=== PATIENT | female | born 1955 ===

== ENCOUNTER 2020-06-01 12:39 | Outpatient (REF) | payer MEDICARE, MEDICAID, SELFPAY ==
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
== END 2020-06-01 12:40 | disposition home or self-care (01) ==
LOC: HO.SH 12:39
PROVIDERS: PCP Family Medicine; Referring Provider Family Medicine; Visit Provider Family Medicine
DX: H90.3 Sensorineural hearing loss, bilateral (principal); H93.12 Tinnitus, left ear
CPT/HCPCS: 92557; 92567

== ENCOUNTER 2020-06-14 16:34 | Outpatient (REF) | payer MEDICARE, MEDICAID, SELFPAY ==
--- NOTE | 2020-06-14 | MM_ITS ---
EXAMINATION: MM SCREENING DIGITAL BREAST TOMOSYNTHESIS, BILATERAL CLINICAL INFORMATION: Screening. Asymptomatic. The lifetime risk of breast cancer based on the Tyrer-Cuzick Model is 6%. COMPARISON: Mammography: 02/14/2019, 09/05/2018, 02/20/2018, 02/05/2018 (baseline) TECHNIQUE: Digital breast tomosynthesis is performed in both the craniocaudal and mediolateral oblique views along with computer-aided detection (CAD). Synthesized 2D images are generated from the tomosynthesis. FINDINGS: There are scattered areas of fibroglandular density (ACR BI-RADS breast composition Category b). Parenchymal pattern is similar to prior studies. There is no developing density or interval mass or architectural abnormality. Small triangular parenchymal asymmetry posterior central 3:00 left breast is stable. Again, there are bilateral vascular calcifications. The axilla and skin contours are unremarkable. MM/MM tomosynthesis screening BI IMPRESSION: No mammographic evidence of malignancy. ASSESSMENT: BI-RADS 2: Benign RECOMMENDATION: Routine annual mammography screening. This patient's information was entered into a reminder system with a target due date for their next mammogram.
== END 2020-06-14 16:35 | disposition home or self-care (01) ==
LOC: HO.MAMMO 16:34
PROVIDERS: Visit Provider Family Medicine
DX: Z12.31 Encounter for screening mammogram for malignant neoplasm of breast (principal)
CPT/HCPCS: 77063; 77067

== ENCOUNTER 2020-09-07 08:51 | Outpatient (REF) | payer MEDICARE, MEDICAID, SELFPAY ==
--- NOTE | ~2020-09-07 | US_ITS ---
EXAMINATION: US ABDOMEN COMPLETE CLINICAL INFORMATION: Chronic viral hepatitis C. COMPARISON: Ultrasound abdomen complete dated 02/12/2020 and 06/03/2019. TECHNIQUE: Real-time imaging of the abdominal viscera. FINDINGS: PANCREAS: Visualized portions unremarkable. The tail is obscured by bowel gas shadowing. ABDOMINAL AORTA: The proximal, mid, and distal segments are normal in caliber. INFERIOR VENA CAVA: Visualized portions are normal. LIVER: Mildly diffuse increased echotexture without focal abnormality. GALLBLADDER: A dependent echogenic focus is again seen along the posterior wall measuring 0.2 cm. No mural thickening or pericholecystic fluid. COMMON BILE DUCT: Normal in caliber measuring 0.4 cm in diameter. RIGHT KIDNEY: 9.8 cm. Interpolar echogenic focus measuring 0.2 cm. LEFT KIDNEY: 11.3 cm. An upper pole anechoic cyst measures 1.9 cm. SPLEEN: Normal. The spleen measures 10.2 cm in maximum dimension. FREE FLUID: None. US/US abdomen complete IMPRESSION: 1. Mild increased hepatic echotexture, similar to the previous study without significant change. No focal abnormality. 2. Small gallstone versus polyp without significant change. No acute cholecystitis. 3. Nonobstructing right intrarenal calculus. 4. Small left renal cyst demonstrates benign features.
== END 2020-09-07 08:52 | disposition home or self-care (01) ==
LOC: HO.US 08:51
PROVIDERS: PCP Internal Medicine; Visit Provider Internal Medicine
DX: B18.2 Chronic viral hepatitis C (principal)
CPT/HCPCS: 76700

== ENCOUNTER 2021-08-16 11:56 | Outpatient (REF) | payer MEDICARE, MEDICAID, SELFPAY ==
--- NOTE | ~2021-08-16 | XR_ITS ---
EXAMINATION: XR KNEE, LEFT CLINICAL INFORMATION: Pain in left knee. Fall one month ago. COMPARISON: None TECHNIQUE: Four views of the left knee. FINDINGS: There is a chronic healing fracture involving the proximal fibular diaphysis with periosteal reaction. This is probably the injury that occurred one month ago. No other fractures are seen. There is some minimal narrowing of the medial compartment indicative of some degenerative change. No joint effusion is present. XR/XR knee LT 4V IMPRESSION: Subacute fracture proximal fibula.
== END 2021-08-16 11:57 | disposition home or self-care (01) ==
LOC: HO.XRAY 11:56
PROVIDERS: PCP Internal Medicine; Visit Provider Internal Medicine
DX: M25.562 Pain in left knee (principal); M25.561 Pain in right knee
CPT/HCPCS: 73564

== ENCOUNTER 2021-09-13 10:35 | Outpatient (REF) | payer MEDICARE, MEDICAID, SELFPAY ==
--- NOTE | ~2021-09-13 | MM_ITS ---
EXAMINATION: BONE DENSITOMETRY CLINICAL INDICATION: Osteoporosis. COMPARISON: None (current study represents initial baseline exam). TECHNIQUE: Using a [employer] DXA System (software version: 13.1) manufactured by [employer], dual-energy x-ray absorptiometry was performed of the lumbar spine and left hip. The images are of good technical quality. Summary results are attached. FINDINGS: AP SPINE L2-L4 (excluding L1): The data of L1-L4 has been changed to exclude the L1 vertebral body, because degenerative changes at this level may cause overestimation of lumbar spine density. BMD 0.735 g/cm2, Z-score -2.2, T-score -3.9, osteoporosis. LEFT FEMUR, NECK: BMD 0.727 g/cm2, Z-score -0.6, T-score -2.2, osteopenia. LEFT FEMUR, TOTAL: BMD 0.745 g/cm2, Z-score -0.7, T-score -2.1, osteopenia. IDENTIFIED RISK FACTORS: Osteoporosis, tobacco use (current smoker), menopause. HISTORY OF FRACTURE: None listed. MEDICATIONS: Calcium supplements or multivitamin, vitamin D. MM/XR DEXA axial skeleton IMPRESSION: 1. DIAGNOSIS: Osteoporosis based on the lowest T-score value of -3.9 in the lumbar spine applying World Health Organization criteria. 2. 10-YEAR FRACTURE RISK PREDICTION, FRAX: According to the guidelines, FRAX calculation should only be performed on patients in the osteopenia bone density category. Therefore, FRAX was not performed on this patient. 3. Treatment Recommendations: NOF guidelines recommend consideration for treatment in postmenopausal women and men age 50 and older presenting with the following: -A hip or vertebral (clinical or morphometric) fracture. -T-score less than or equal to -2.5 at the femoral neck or spine after appropriate evaluation to exclude secondary causes. -Low bone mass at the hip or spine and a 10-year fracture probability by FRAX of greater than or equal to 3% for hip fracture or greater than or equal to 20% for major osteoporotic fracture based on the [place] adapted WHO algorithm. 4. Other Recommendations: All treatment decisions require clinical judgment and consideration of individual patient factors, including patient preferences, comorbidities, previous drug use, risk factors not captured in the FRAX model (e.g. frailty, falls, vitamin D deficiency, increased bone turnover, interval significant decline in bone density) and possible under or overestimation of fracture risk by FRAX. Additional medical evaluation for secondary cause of low bone mineral density may be appropriate. FUTURE SCAN RECOMMENDATION: People with diagnosed cases of osteoporosis or at high risk for fracture should have regular bone mineral density tests. For patients eligible for Medicare, routine testing is allowed once every 2 years. The testing frequency can be increased to one year for patients who have rapidly progressing disease, those who are receiving or discontinuing medical therapy to restore bone mass, or have additional risk factors.
--- NOTE | ~2021-09-13 | MM_ITS ---
EXAMINATION: MM SCREENING DIGITAL BREAST TOMOSYNTHESIS, BILATERAL CLINICAL INFORMATION: Screening. Asymptomatic. The lifetime risk of breast cancer based on the Tyrer-Cuzick Model is 4%. COMPARISON: Mammography: 06/14/2020, 02/14/2019, 09/05/2018 TECHNIQUE: Digital breast tomosynthesis is performed in both the craniocaudal and mediolateral oblique views along with computer-aided detection (CAD). Synthesized 2D images are generated from the tomosynthesis. FINDINGS: There are scattered areas of fibroglandular density (ACR BI-RADS breast composition Category b). There are no significant masses, abnormal calcifications, or other abnormalities. There is no developing density. Parenchymal pattern is similar to prior studies. The axilla and skin contours are unremarkable. MM/MM tomosynthesis screening BI IMPRESSION: No mammographic evidence of malignancy. ASSESSMENT: BI-RADS 1: Negative RECOMMENDATION: Routine annual mammography screening. This patient's information was entered into a reminder system with a target due date for their next mammogram.
== END 2021-09-13 10:36 | disposition home or self-care (01) ==
LOC: HO.MAMMO 10:35
PROVIDERS: PCP Internal Medicine; Visit Provider Advanced Practice Midwife
DX: Z12.31 Encounter for screening mammogram for malignant neoplasm of breast (principal); Z13.820 Encounter for screening for osteoporosis; M81.0 Age-related osteoporosis without current pathological fracture; Z78.0 Asymptomatic menopausal state; F17.200 Nicotine dependence, unspecified, uncomplicated; Z79.899 Other long term (current) drug therapy
CPT/HCPCS: 77063; 77067; 77080

== ENCOUNTER → 2021-11-03 13:57 | Outpatient (BNVA) | payer MEDICARE, MEDICAID, SELFPAY | PROVIDERS: PCP Internal Medicine; Visit Provider Orthopaedic Surgery | DX: M17.12 Unilateral primary osteoarthritis, left knee (principal) | CPT/HCPCS: 20610; 99202; J1100 ==

== ENCOUNTER 2022-03-29 07:24 | Outpatient (REF) | payer MEDICARE, MEDICAID, SELFPAY ==
--- NOTE | ~2022-03-29 | US_ITS ---
EXAMINATION: US ABDOMEN LIMITED CLINICAL INFORMATION: Cirrhosis. Screening for HCC. COMPARISON: None TECHNIQUE: Real-time imaging of the right upper quadrant abdominal viscera. FINDINGS: PANCREAS: Normal LIVER: Liver echotexture is slightly increased and heterogeneous suggestive of hepatocellular disease. The contour of the liver is irregular suggestive of mild cirrhotic change. There is no intrahepatic biliary duct dilatation seen. GALLBLADDER: The gallbladder is physiologically distended. Several small gallstones are present. No evidence of gallbladder wall thickening or pericholecystic fluid. COMMON BILE DUCT: Normal in caliber measuring 0.3 cm in diameter. RIGHT KIDNEY: There is question of 2 small stones in the upper and midpole measuring 2 to 3 mm. There is a small 4 mm cyst in the midpole. No hydronephrosis The kidney measures 10.0 cm in maximum dimension. FREE FLUID: None. US/US abdomen limited IMPRESSION: Cirrhotic-appearing liver. No focal liver lesion seen. No ascites. Gallstones. Question small right renal stones.
== END 2022-03-29 07:25 | disposition home or self-care (01) ==
LOC: HO.US 07:24
PROVIDERS: Visit Provider Internal Medicine
DX: K74.60 Unspecified cirrhosis of liver (principal)
CPT/HCPCS: 76705

== ENCOUNTER 2022-10-17 10:08 | Outpatient (REF) | payer MEDICARE, MEDICAID, SELFPAY ==
--- NOTE | ~2022-10-17 | MM_ITS ---
EXAMINATION: MM SCREENING DIGITAL BREAST TOMOSYNTHESIS, BILATERAL CLINICAL INFORMATION: Screening. Asymptomatic. The lifetime risk of breast cancer based on the Tyrer-Cuzick Model is 3%. COMPARISON: Mammography: September 13, 2021 and studies dating back to February 05, 2018 TECHNIQUE: Digital breast tomosynthesis is performed in both the craniocaudal and mediolateral oblique views along with computer-aided detection (CAD). Synthesized 2D images are generated from the tomosynthesis. FINDINGS: The breasts are heterogeneously dense, which may obscure small masses (ACR BI-RADS breast composition Category c). There are no significant masses, abnormal calcifications, or other abnormalities. MM/MM tomosynthesis screening BI IMPRESSION: No significant changes from prior exam. ASSESSMENT: BI-RADS 1: Negative RECOMMENDATION: Routine annual mammography screening. This patient's information was entered into a reminder system with a target due date for their next mammogram.
== END 2022-10-17 10:09 | disposition home or self-care (01) ==
LOC: HO.MAMMO 10:08
PROVIDERS: Visit Provider Internal Medicine
DX: Z12.31 Encounter for screening mammogram for malignant neoplasm of breast (principal)
CPT/HCPCS: 77063; 77067

== ENCOUNTER 2023-02-13 08:23 | Outpatient (REF) | payer MEDICARE, MEDICAID, SELFPAY ==
--- NOTE | ~2023-02-13 | US_ITS ---
EXAMINATION: US ABDOMEN COMPLETE CLINICAL INFORMATION: Cirrhosis of liver without ascites. COMPARISON: Ultrasound abdomen limited 03/29/2022. Ultrasound abdomen complete 09/07/2020. TECHNIQUE: Real-time imaging of the abdominal viscera. Limited visualization due to bowel gas. FINDINGS: PANCREAS: Limited visualization of pancreatic tail and head. Imaged portion of pancreatic body is unremarkable. ABDOMINAL AORTA: Limited visualization of the [id number] abdominal aorta. Imaged portion of the proximal abdominal aorta is nonaneurysmal and atherosclerotic. INFERIOR VENA CAVA: Visualized portions are normal. LIVER: Nodular hepatic contour, possibly related to cirrhosis. Increased and heterogeneous hepatic echotexture is suggestive of hepatocellular disease. Limited visualization. GALLBLADDER: No gallbladder wall thickening. Multiple small gallstones. COMMON BILE DUCT: Normal in caliber measuring 0.4 cm in diameter. RIGHT KIDNEY: Right renal midpole 0.6 x 0.4 x 0.3 cm cyst, stable. Right renal upper pole 0.3 cm calculus. No hydronephrosis. Limited visualization. The kidney measures 9.8 cm in maximum dimension. LEFT KIDNEY: Left renal upper pole 2.1 x 2.2 x 2.3 cm simple cyst. There is no indication for follow up imaging. No hydronephrosis or renal calculi. Limited visualization. The kidney measures 12.2 cm in maximum dimension. SPLEEN: Normal. The spleen measures 9.2 cm in maximum dimension. FREE FLUID: None. US/US abdomen complete IMPRESSION: 1. Hepatic appearance compatible with given history of cirrhosis. 2. Cholelithiasis. 3. Possible 0.3 cm right renal upper pole calculus. No hydronephrosis.
== END 2023-02-13 08:24 | disposition home or self-care (01) ==
LOC: HO.US 08:23
PROVIDERS: PCP Internal Medicine; Visit Provider Family Medicine
DX: K74.60 Unspecified cirrhosis of liver (principal)
CPT/HCPCS: 76700

== ENCOUNTER 2023-03-28 09:32 | Outpatient (REF) | payer MEDICARE, MEDICAID, SELFPAY ==
[2023-03-28 11:23] LABS: MANUAL DIFF FLAG NO
[2023-03-28 11:40] LABS: Basophils Percent Auto 0.5 % (0-2); Eosinophils Absolute Auto 0.2 X10*3/uL (0.0-0.4); Eosinophils Percent Auto 2.5 % (0-4); Hematocrit 38.9 % (37.0-47.0); Hemoglobin 13.2 g/dl (12.0-16.0); Imm Gran Abs Auto 0.03 X10*3/uL (0.00-0.03); Imm Gran Pct Auto 0.4 % (0.0-0.4); Lymphocytes Absolute Auto 2.4 X10*3/uL (1.2-4.9); Lymphocytes Percent Auto 32.4 % (20-40); Mean Corpuscular HGB Conc 33.9 g/dl (31.0-35.0); Mean Corpuscular Hemoglobin 30.7 pg (27.0-33.0); Mean Corpuscular Volume 90.5 fL (80.0-98.0); Mean Platelet Volume 12.6 fL (9.4-12.3); Monocytes Absolute Auto 0.5 X10*3/uL (0.1-1.2); Neutrophils Absolute Auto 4.3 x10*3/uL (2.0-8.3); Neutrophils Percent Auto 57.2 % (45-73); Platelet Count 130 X10*3/uL (160-400); Red Cell Distribution Width 13.1 % (11.0-16.0); White Blood Count 7.5 X10*3/uL (4.8-10.8)
[2023-03-28 11:52] LABS: Appearance Urine Clear; Color Urine Yellow; Glucose Urine UA Negative (Negative); Leukocyte Esterase Urine Trace (Negative); Nitrite Urine Negative (Negative); Specific Gravity - Urine 1.015 (1.005-1.025); UMIC TRIGGER UA YES; Urine Blood Moderate (2+) (Negative); Urine Ketones Negative (Negative); Urine Protein Negative (Neg-Trace)
[2023-03-28 11:55] LABS: Bacteria Urine None Seen (None Seen); Hyaline Casts Urine 0-2 /LPF (0-2); Squamous Epithelial Cell Urine 0-2 /HPF (0-2); WBC Urine 0-5 /HPF (0-5)
[2023-03-28 12:19] LABS: Alanine Aminotransferase 10 U/L (0-31); Albumin Level 4.2 g/dL (3.5-5.0); Alkaline Phosphatase 84 U/L (39-117); Anion Gap 10 (12-20); Aspartate Amino Transferase 14 U/L (5-31); Bilirubin Total 0.4 mg/dL (0.0-1.0); Blood Urea Nitrogen 14 mg/dL (9-16); Calcium 9.1 mg/dL (8.4-10.2); Carbon Dioxide 29 mmol/L (22-29); Chloride 107 mmol/L (96-108); Estimated Glomerular Filt Rate > 60; Glucose Random 95 mg/dL (60-115); Potassium 4.3 mmol/L (3.3-5.1); Sodium 142 mmol/L (135-145); Total Protein 7.7 g/dL (6.5-8.0)
[2023-03-29 11:48] LABS: Absolute CD3 Count 2058 cells/uL (840-3060); Absolute CD4 Count 857 cells/uL (490-1740); Absolute CD8 Count 1222 cells/uL (180-1170); Absolute Lymphocytes 2490 cells/uL (850-3900); Percent CD3 Cells 83 % (57-85); Percent CD4 Cells 34 % (30-61); Percent CD8 Cells 49 % (12-42)
[2023-03-29 15:43] LABS: HIV RNA PCR Qn Copies 60 copies/mL (NOT DETECTED); HIV RNA PCR Qn Log Copies 1.78 (NOT DETECTED)
[2023-03-30 11:33] LABS: TS Negative Control Passed; TS Panel A 1; TS Panel B 0; TS Positive Control Passed; TSpotTB Negative (Negative)
== END 2023-03-28 09:33 | disposition home or self-care (01) ==
LOC: HO.HHCL 09:32
PROVIDERS: Visit Provider Student in an Organized Health Care Education/Training Program
DX: B20 Human immunodeficiency virus [HIV] disease (principal)
CPT/HCPCS: 36415; 80053; 81001; 85025; 86359; 86360; 86481; 87536

== ENCOUNTER 2023-06-18 11:27 | Outpatient (REF) | payer MEDICARE, MEDICAID, SELFPAY ==
[2023-06-18 13:28] LABS: INTERNATIONAL NORM RATIO 0.9 (0.9-1.1); Prothrombin Time 11.5 SEC (11.1-13.3)
[2023-06-18 13:49] LABS: Appearance Urine Clear; Color Urine Yellow; Glucose Urine UA Negative (Negative); Leukocyte Esterase Urine Trace (Negative); Nitrite Urine Negative (Negative); PH 6.5 (5.0-9.0); UMIC TRIGGER UA YES; Urine Blood Small (1+) (Negative); Urine Ketones Negative (Negative); Urine Protein Negative (Neg-Trace)
[2023-06-18 14:06] LABS: Bacteria Urine None Seen (None Seen); Hyaline Casts Urine 0-2 /LPF (0-2); Squamous Epithelial Cell Urine 0-2 /HPF (0-2); WBC Urine 0-5 /HPF (0-5)
[2023-06-19 04:35] LABS: HBc Num1 2.41 S/CO (0.00-0.79); HBsAGNum1 0.24 S/CO (0.00-0.99); Hepatitis B Surface Antigen Negative (Negative)
[2023-06-19 04:41] LABS: Hepatitis A Antibody IgG REACTIVE (Nonreactive)
[2023-06-19 06:01] LABS: HBS Num2 9.68 mIU/mL (0-7.99); HBc Num3 2.41 S/CO; Hepatitis B Core Antibody Reactive (Nonreactive); ~Hepatitis B Surface Antibody GRAYZONE (Nonreactive)
[2023-06-19 13:09] LABS: Alpha Fetoprotein 3.6 ng/mL
[2023-06-21 18:35] LABS: HIV RNA PCR Qn Copies <20 DETECTED copies/mL (NOT DETECTED); HIV RNA PCR Qn Log Copies <1.30 DETECTED (NOT DETECTED)
== END 2023-06-18 11:28 | disposition home or self-care (01) ==
LOC: HO.HHCL 11:27
PROVIDERS: Visit Provider Student in an Organized Health Care Education/Training Program
DX: B20 Human immunodeficiency virus [HIV] disease (principal); K74.60 Unspecified cirrhosis of liver; Z11.59 Encounter for screening for other viral diseases; Z72.89 Other problems related to lifestyle
CPT/HCPCS: 36415; 81001; 82105; 85610; 86704; 86705; 86706; 86708; 87340; 87536

== ENCOUNTER 2023-08-07 14:47 | Outpatient (AMB) | payer MEDICARE, MEDICAID, SELFPAY ==
--- NOTE | 2023-08-07 14:56 | MHC.OFFVIS ---
Intake Vital Signs 08/07/23 14:58 Height 5 ft 2 in Weight 140 lb BMI 25.6 BP 137/60 Blood Pressure Location Lt brachial Position Sitting Pulse 90 Intake Visit Reasons: Cirrhosis of Liver w/o ascites Intake Note: New consult for Cirrhosis of liver. Patient denies any GI issues. Architectural Coating Finisher Required: Yes Architectural Coating Finisher Name: [facility] [place], [place] Interpeter Accompanied by: Daughter Allergies Penicillins Allergy (Verified 08/07/23 14:56) Hives HPI Cirrhosis of Liver w/o ascites HPI Details 67-year-old female with past medical history of osteoporosis, hep C, hypo thyroidism, HIV cholelithiasis, history of syphilis, cirrhosis of the liver, dyslipidemia, cervical disc disease, is here today for initial consultation. Patient was sent to us by her PCP for evaluation of her liver. Patient was diagnosed with hep C and treated with Epclusa saw for 12 weeks in December of 2017. Patient had colonoscopy and upper endoscopy in July of 2018, 1 tubular adenoma found and recommendation made to repeat colonoscopy in July of 2023. Patient is refusing to go for colonoscopy. Patient denies any GI concerning symptoms. Occasional abdominal bloating. Patient denies any abdominal pain or discomfort. Denies any melena, hematochezia, unintentional weight loss or ribbon like stools. 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 Review of Systems Const Denies weight gain and Denies weight loss ENT Reports no additional complaints, Denies dysphagia and Denies odynophagia Card Reports no additional complaints Resp Reports no additional complaints GI Denies abdominal pain, Denies belching, Denies melena, Denies bloating, Denies change in bowel habits, Denies dysphagia, Denies excessive flatus, Denies dyspepsia, Denies heartburn, Denies diarrhea, Denies loose stools, Denies nausea, Denies odynophagia and Denies vomiting Musc Reports no additional complaints Neuro Reports no additional complaints Psych Reports no additional complaints Endo Reports no additional complaints Physical Exam Vital Signs: Last Vital Signs Pulse 90 08/07/23 14:58 BP 137/60 08/07/23 14:58 BMI result Body Mass Index 25.6 Const General: healthy appearing, no acute distress and well developed Nutritional Appearance: well nourished Orientation/consciousness: patient oriented x3 Resp Effort & Inspection: normal respiratory effort, able to speak in complete sentences, no tracheal deviation and symmetric chest movement Auscultation: clear to auscultation bilaterally Cardio Rate: regular rate GI Inspection: Yes normal to inspection and No distended Palpation (GI): Soft to palpation, not firm, nontender and No hepatosplenomegaly present Auscultation: normal bowel sounds General: Yes no CVA tenderness Back/Spine/Pelvis Back: no CVA tenderness Skin General skin exam: elasticity normal, turgor normal and dry skin Neuro General: patient oriented x3 Psych Appearance: grossly normal Mental Status: mental status grossly normal Assessment & Plan Assessment & Plan (1) History of hepatitis C: Code(s): Z86.19 - Personal history of other infectious and parasitic diseases (2) HIV (human immunodeficiency virus infection): Code(s): B20 - Human immunodeficiency virus [HIV] disease Qualifiers: HIV symptom status: unspecified Qualified Code(s): B20 - Human immunodeficiency virus [HIV] disease (3) Liver cirrhosis: Code(s): K74.60 - Unspecified cirrhosis of liver (4) Colonoscopy refused: Code(s): Z53.20 - Procedure and treatment not carried out because of patient's decision for unspecified reasons Plan History of HIV and hep C. Patient has been treated by her PCP. Treatment for hep C back in 2018. Will do viral load. Patient denies any abdominal pain or discomfort. Denies any abdominal distension, jaundice. Will check for autoimmune disorders, alpha-fetoprotein was negative. Will check liver with elastography end-stage. Patient will return to the office in 3 months, sooner on as needed basis. Patient is agreeable to this plan and verbalizes understanding of instructions. She was given the opportunity to ask questions and all questions answered. Thank you for allowing me to participate in her care Orders: Orders Hepatitis C Viral Load 08/07/23 Z86.19 - Personal history of other infectious and parasitic diseases US abdomen comp w elastography 08/07/23 R79.89 - Other specified abnormal findings of blood chemistry C Reactive Protein 08/07/23 K58.9 - Irritable bowel syndrome without diarrhea Smooth Muscle Antibody 08/07/23 R79.89 - Other specified abnormal findings of blood chemistry Mitochondrial Antibody 08/07/23 R79.89 - Other specified abnormal findings of blood chemistry Ferritin 08/07/23 R74.8 - Abnormal levels of other serum enzymes Liver Fibrosis Pnl 08/07/23 R74.8 - Abnormal levels of other serum enzymes Prothrombin Time INR 08/07/23 R74.8 - Abnormal levels of other serum enzymes Coding Level of Care Code New Pt Level 4 (03888) Diagnoses History of hepatitis C Z86.19 HIV infection, unspecified symptom status B20 HIV symptom status: unspecified Liver cirrhosis K74.60 Colonoscopy refused Z53.20 Time Spent (min) 45 Comment 30 minutes spent with patient and additional 15 minutes spent reviewing her records
[2023-08-07 14:58] VITALS: BP 137/60; PULSE 90; BMI 25.6
== END 2023-08-07 15:32 | disposition home or self-care (01) ==
PROVIDERS: PCP Internal Medicine; Visit Provider Nurse Practitioner Family
DX: Z86.19 Personal history of other infectious and parasitic diseases (principal); B20 Human immunodeficiency virus [HIV] disease; K74.60 Unspecified cirrhosis of liver; Z53.20 Procedure and treatment not carried out because of patient's decision for unspecified reasons
CPT/HCPCS: 99204

== ENCOUNTER → 2023-08-07 14:47 | Outpatient (BNVA) | payer MEDICARE, MEDICAID, SELFPAY | PROVIDERS: PCP Internal Medicine; Visit Provider Nurse Practitioner Family | DX: K74.60 Unspecified cirrhosis of liver (principal); B20 Human immunodeficiency virus [HIV] disease; Z86.19 Personal history of other infectious and parasitic diseases; Z53.20 Procedure and treatment not carried out because of patient's decision for unspecified reasons | CPT/HCPCS: 99202 ==

== ENCOUNTER 2023-08-13 10:43 | Outpatient (REF) | payer MEDICARE, MEDICAID, SELFPAY ==
[2023-08-13 11:15] LABS: Prothrombin Time 12.6 SEC (11.1-13.3)
[2023-08-13 12:58] LABS: C Reactive Protein < 0.10 mg/dL (< or = 0.50)
[2023-08-13 13:07] LABS: Ferritin 34 ng/mL (10-250)
[2023-08-15 19:29] LABS: HCV Log PCR <1.18 NOT DETECTED Log IU/mL (NOT DETECTED); HepC Viral Load <15 NOT DETECTED IU/mL (NOT DETECTED)
[2023-08-17 12:34] LABS: Smooth Muscle Antibody <20 U (<20)
[2023-08-17 15:49] LABS: Mitochondrial Antibodies NEGATIVE (NEGATIVE)
[2023-08-18 16:58] LABS: FIB-ALT 16 U/L (6-29); FIB-Alpha-2-Macroglobulin 339 mg/dL (106-279); FIB-Apolipoprotein A1 144 mg/dL (101-198); FIB-GGT 25 U/L (3-65); FIB-Haptoglobin 165 mg/dL (43-212); FIB-Total Bilirubin 0.3 mg/dL (0.2-1.2); Liver Fibrosis Score 0.37; Liver Fibrosis Stage F1-F2; Nec Inflam Act Grade A0; Nec Inflam Act Score 0.06
== END 2023-08-13 10:44 | disposition home or self-care (01) ==
LOC: HO.LAB 10:43
PROVIDERS: PCP Internal Medicine; Visit Provider Nurse Practitioner Family
DX: K58.9 Irritable bowel syndrome, unspecified (principal); R79.89 Other specified abnormal findings of blood chemistry; R74.8 Abnormal levels of other serum enzymes; Z86.19 Personal history of other infectious and parasitic diseases
CPT/HCPCS: 36415; 81596; 82728; 85610; 86015; 86140; 86381; 87522

== ENCOUNTER 2023-08-31 07:57 | Outpatient (REF) | payer MEDICARE, MEDICAID, SELFPAY ==
[2023-08-31 11:44] LABS: Appearance Urine Clear; Color Urine Yellow; Estimated Average Glucose 105 mg/dL; Glucose Urine UA Negative (Negative); Hemoglobin A1c % 5.3 % (<6.0); Leukocyte Esterase Urine Moderate (2+) (Negative); Nitrite Urine Negative (Negative); PH 5.5 (5.0-9.0); UMIC TRIGGER UACC YES; Urine Blood Moderate (2+) (Negative); Urine Ketones Negative (Negative); Urine Protein Negative (Neg-Trace)
[2023-08-31 11:47] LABS: Bacteria Urine 1+ (None Seen); Hyaline Casts Urine 0-2 /LPF (0-2); UACC Culture Trigger YES; WBC Urine 21-50 /HPF (0-5)
[2023-08-31 11:54] LABS: Cholesterol 160 mg/dL (<200); HDL Cholesterol 42 mg/dL (>40); LDL Cholesterol Calculated 80 mg/dL (<100); Triglycerides 193 mg/dL (<150)
== END 2023-08-31 07:58 | disposition home or self-care (01) ==
LOC: HO.HHCL 07:57
PROVIDERS: Visit Provider Internal Medicine
DX: R31.21 Asymptomatic microscopic hematuria (principal); I10 Essential (primary) hypertension; Z79.899 Other long term (current) drug therapy
CPT/HCPCS: 36415; 80061; 81001; 83036; 87086

== ENCOUNTER 2023-09-11 08:44 | Outpatient (REF) | payer MEDICARE, MEDICAID, SELFPAY ==
--- NOTE | ~2023-09-11 | US_ITS ---
EXAMINATION: US COMPLETE ABDOMEN WITH LIVER ELASTOGRAPHY CLINICAL INFORMATION: Abnormal findings of blood chemistry COMPARISON: None available. TECHNIQUE: Real-time imaging of the abdominal viscera. Noninvasive ultrasound liver fibrosis assessment is performed using Ananth ElastPQ point quantification shear wave elastography (2D-SWE) with a C5-2 MHz transducer. Multiple elastography samples are obtained. FINDINGS: PANCREAS: Normal. The visualized pancreatic head and body are normal in appearance. The remainder of the pancreas is obscured from visualization by the overlying bowel gas. ABDOMINAL AORTA: The proximal abdominal aorta is of normal caliber. The mid and the distal abdominal aorta is not seen. INFERIOR VENA CAVA: Visualized portions are normal. LIVER: The liver demonstrates heterogeneous echotexture, mild lobulated contour but normal size.. No focal lesion or intrahepatic biliary duct dilatation. The right lobe measures 12.7 cm in length. The left lobe measures 11.8 cm in length. Portal flow is hepatopedal Shear wave liver elastography median stiffness is 1.80 m/s (reference: normal median stiffness is 1.3 m/s or less). IQR/median stiffness to assess sampling precision is 0.18 (reference: good quality data set is IQR/median stiffness of 0.15 or less). GALLBLADDER: There are small echogenic mobile gallstones without wall thickening or pericholecystic fluid collection. COMMON BILE DUCT: Normal in caliber measuring 0.4 cm in diameter. RIGHT KIDNEY: The kidney has a lobulated contour but normal size. No hydronephrosis. No renal calculi or focal parenchymal lesions. The kidney measures 9.5 cm in maximum dimension. LEFT KIDNEY: Normal. No hydronephrosis. No renal calculi or focal parenchymal lesions. The kidney measures 11.5 cm in maximum dimension. There is anechoic cyst upper/medial pole measuring 2.5 x 2.3 x 2.3 cm. SPLEEN: Normal. The spleen measures 9.3 cm in maximum dimension. FREE FLUID: None. US/US abdomen comp w elastography IMPRESSION: 1. Mild cirrhotic appearing liver without any focal lesion. Cholelithiasis without wall thickening. 2. Liver elastography: Median liver stiffness measures 1.80 m/s corresponding to cACLD (suggestive) REFERENCE: Society of Radiologists in Ultrasound Liver Stiffness Thresholds (2019): LIVER STIFFNESS THRESHOLDS: *Liver Stiffness equal or less than 1.3 m/s: High probability of being normal. *Liver Stiffness less than 1.7 m/s: In the absence of other known clinical signs, rules out compensated advanced chronic liver disease. *Liver Stiffness 1.7-2.1 m/s: Suggestive of compensated advanced chronic liver disease but need further test for confirmation. *Liver Stiffness over 2.1 m/s: Rules in compensated advanced chronic liver disease. *Liver Stiffness over 2.4 m/s: Suggestive of clinically significant portal hypertension. QUALITY OF DATA SET: *IQR/Median value equal or less than 0.15 implies a quality data set. *IQR/Median value over 0.15 implies a poor quality data set. SIGNIFICANT CHANGE FROM PRIOR EXAM: Significant change if liver stiffness measurement is 10% or greater from prior exam. OTHER CONSIDERATIONS: The stage of liver fibrosis may be overestimated in the setting of acute hepatitis, liver inflammation, elevated liver function tests, hepatic vascular congestion, obstructive cholestasis, non-fasting state, and infiltrative diseases such as amyloidosis and lymphoma. In some patients with NAFLD, the liver stiffness thresholds for compensated advanced chronic liver disease may be lower. In causes other than viral hepatitis and NAFLD, liver stiffness thresholds are not well established.
== END 2023-09-11 08:45 | disposition home or self-care (01) ==
LOC: HO.US 08:44
PROVIDERS: PCP Internal Medicine; Visit Provider Nurse Practitioner Family
DX: R79.89 Other specified abnormal findings of blood chemistry (principal)
CPT/HCPCS: 76700; 76981

== ENCOUNTER 2023-10-23 10:07 | Outpatient (REF) | payer MEDICARE, MEDICAID, SELFPAY ==
--- NOTE | ~2023-10-23 | MM_ITS ---
EXAMINATION: MM SCREENING DIGITAL BREAST TOMOSYNTHESIS, BILATERAL CLINICAL INFORMATION: Screening. Asymptomatic. COMPARISON: Mammography: 10/17/2022, 09/13/2021, 06/14/2020, 02/14/2019, 09/05/2018 TECHNIQUE: Digital breast tomosynthesis is performed in both the craniocaudal and mediolateral oblique views along with computer-aided detection (CAD). Synthesized 2D images are generated from the tomosynthesis. FINDINGS: There are scattered areas of fibroglandular density (ACR BI-RADS breast composition Category b). There are no suspicious masses, suspicious grouped calcifications, or areas of architectural distortion in either breast. There is an unchanged focal parenchymal asymmetry in the left CC and MLO projection, posterior one third, just lateral and inferior to to the nipple line. The parenchymal pattern is stable from prior exams. MM/MM tomosynthesis screening BI IMPRESSION: No mammographic evidence of malignancy. ASSESSMENT: BI-RADS BI-RADS 2 - Benign Findings RECOMMENDATION: Routine annual mammography screening. 1 year F/U This examination should not preclude the clinical evaluation of a suspicious palpable abnormality. This patient's information was entered into a reminder system with a target due date for their next mammogram.
== END 2023-10-23 10:08 | disposition home or self-care (01) ==
LOC: HO.MAMMO 10:07
PROVIDERS: PCP Internal Medicine; Visit Provider Internal Medicine
DX: Z12.31 Encounter for screening mammogram for malignant neoplasm of breast (principal)
CPT/HCPCS: 77063; 77067

== ENCOUNTER → 2023-10-23 10:30 | Outpatient (BNV) | payer MEDICARE, MEDICAID, SELFPAY | PROVIDERS: PCP Internal Medicine; Visit Provider Radiology Diagnostic Radiology | DX: Z12.31 Encounter for screening mammogram for malignant neoplasm of breast (principal) | CPT/HCPCS: 77063; 77067 ==

== ENCOUNTER 2023-11-13 12:46 | Outpatient (AMB) | payer MEDICARE, MEDICAID, SELFPAY ==
--- NOTE | 2023-11-13 13:07 | A.OFFVIS_ITS ---
Intake Visit Reasons: microscopic hematuria Intake Note: New Patient presents for initial visit for microscopic hematuria Urology Medications: none Blood Thinner: none Apartment Maintenance Supervisor Required: Yes Apartment Maintenance Supervisor Name: CONG HEDRICK-JUANCARLOS Accompanied by: Unknown Allergies Penicillins Allergy (Verified 11/13/23 13:30) Hives Medication List - Last Reconciled 11/13/23 by Zara Murray, SHAKE LOADER- albuterol sulfate 90 mcg/actuation 0 mcg inhalation alendronate 70 mg PO QWEEK amlodipine 5 mg PO DAILY atorvastatin 20 mg PO DAILY tcziqhfnn-ujdccmll-ixajmei ala 50-200-25 mg (Biktarvy) 1 tab PO DAILY calcium carbonate-vitamin D3 500 mg-5 mcg (200 unit) (Oyster Shell Calcium- Vitamin D3) 1 tab PO DAILY cholecalciferol (vitamin D3) 50 mcg PO DAILY darunavir-cobicistat 800-150 mg-mg (Prezcobix) 1 tab PO DAILY dolutegravir (Tivicay) 50 mg PO DAILY emtricitabine-tenofovir alafen 200-25 mg (Descovy) 1 tab PO DAILY ferrous sulfate (FeroSul) 325 mg PO DAILY hydrochlorothiazide 25 mg PO DAILY hydroxyzine HCl 25 mg PO TID ivermectin 6 mg PO BID lisinopril 40 mg PO DAILY melatonin 5 mg PO BEDTIME trazodone 25 mg PO BEDTIME PRN HPI Comments Details: Ysabel is a very pleasant [place]aguayan-speaking 68-year-old female patient of Dr. Proctor who was accompanied by her granddaughter at today's office visit. She has a past medical history of liver cirrhosis, HIV, hep C, osteoporosis, hypercholesteremia, and hypertension. She presents to the office today as a new patient for microscopic hematuria in the setting of nicotine dependence. In discussion with the patient today she reports smoking approximately half a pack of cigarettes per day since the age of 9. She discusses following up with her PCP in recommendations were made for urology referral as she has had multiple urinalysis is that noted microscopic hematuria. She currently denies any bothersome urinary issues or concerns. She denies urinary urgency,incontinence, nocturia, hematuria, dysuria, foul smelling urine, changes to urinary stream, flank pain, fever, and or chills. She is happy with her current voiding parameters. She does report noting urinary frequency however notes urinary frequency after taking her hydrochlorothiazide. Discussed at length potential causes of microscopic hematuria. Discussed further workup versus surveillance monitoring. Risks and benefits of these interventions were discussed at length. All questions were answered. She otherwise offers no other issues or concerns at this time. 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 Review of Systems Const Reports no additional complaints Eyes Reports no additional complaints ENT Reports no additional complaints Card Reports as per HPI Resp Reports no additional complaints GI Reports as per HPI Reports as per HPI Musc Reports no additional complaints Neuro Reports no additional complaints Psych Reports no additional complaints Endo Reports no additional complaints Jean Pierre/Lymph Reports as per HPI Aller/Immun Reports as per HPI Physical Exam Const General: cooperative, healthy appearing, comfortable, no acute distress, well developed, alert and awake Orientation/consciousness: patient oriented x3 Limitations: no limitations HEENT Head: Yes normal to inspection, Yes normocephalic and Yes atraumatic Ears: hearing grossly normal bilaterally Eyes General: appearance normal, both eyes and all related structures Neck Neck: Yes normal visual inspection and Yes trachea midline Chest Chest palpation & inspection: normal inspection of the chest Resp Effort & Inspection: normal respiratory effort and able to speak in complete sentences Cardio Rate: regular rate GI Inspection: Yes normal to inspection General: Yes no CVA tenderness Back/Spine/Pelvis Back: no CVA tenderness Skin General skin exam: no rashes or lesions noted Neuro General: patient oriented x3 Extrem General: Yes normal to inspection Psych Appearance: grossly normal and well kempt Mental Status: mental status grossly normal Speech and movement: Normal speech and movement present and Clear speech present Affect: normal affect Attitude: cooperative Thought process: Normal thought process present Thought content: Normal thought content present Insight: Fair insight present (Psych) Judgement: Fair judgement present (Psych) Results AMB Urinalysis, Automated UA Leukoctes 70 Kelly/uL Last Edit by Mohinder Medel on 11/13/23 13:23 UA Nitrite Negative Last Edit by Mohinder Medel on 11/13/23 13:23 UA Urobilinogen 0.2 mg/dL Last Edit by Mohinder Medel on 11/13/23 13:23 UA Protein 0 mg/dL Last Edit by Mohinder Medel on 11/13/23 13:23 UA pH 6.0 Last Edit by Mohinder Medel on 11/13/23 13:23 UA Blood 80 Rinku/uL Last Edit by Mohinder Medel on 11/13/23 13:23 UA Specific [place] 1.015 Last Edit by Mohinder Medel on 11/13/23 13:23 UA Ketone Negative Last Edit by Mohinder Medel on 11/13/23 13:23 UA Bilirubin 0 mg/dL Last Edit by Mohinder Medel on 11/13/23 13:23 UA Glucose 0 mg/dL Last Edit by Mohinder Medel on 11/13/23 13:23 Results Reviewed Results Reviewed: Laboratory Last Values Urine pH (Auto) 6.0 11/13/23 13:09 Specific [place] (Auto) 1.015 11/13/23 13:09 Urine Protein (Auto) 0 mg/dL 11/13/23 13:09 Glucose (UA)(Auto) 0 mg/dL 11/13/23 13:09 Urine Ketones (Auto) Negative 11/13/23 13:09 Urine Blood (Auto) 80 Rinku/uL 11/13/23 13:09 Urine Nitrite (Auto) Negative 11/13/23 13:09 Urine Bilirubin (Auto) 0 mg/dL 11/13/23 13:09 Urine Urobilinogen (Auto) 0.2 mg/dL 11/13/23 13:09 Leukocyte Esterase (Auto) 70 Kelly/uL 11/13/23 13:09 Assessment & Plan Assessment & Plan (1) Microscopic hematuria: Code(s): R31.29 - Other microscopic hematuria Category: Medical (2) Nicotine dependence: Code(s): F17.200 - Nicotine dependence, unspecified, uncomplicated Category: Medical Plan In office urinalysis results reviewed with the patient today; as noted above; will send for urine cytology. Will obtain CT urogram for further assessment evaluation. BUN and creatinine ordered for imaging. Discussed at length potential causes of microscopic hematuria in the setting of nicotine dependence. Discussed, educated, and stressed the importance of limiting/quitting nicotine dependence for over all health and well being. Patient currently denies any bothersome urinary issues or concerns. She reports be happy with current voiding parameters. Follow-up in office cystoscopy with lab and imaging to be completed prior or sooner with any issues, questions, and or concerns. Orders: Orders CT urogram Today R31.0 - Gross hematuria AMB Urinalysis Automated Today Z13.9 - Encounter for screening, unspecified Urine Cytology Today Z13.9 - Encounter for screening, unspecified Blood Urea Nitrogen Today F17.200 - Nicotine dependence, unspecified, uncomplicated, R31.29 - Other microscopic hematuria Creatinine Today F17.200 - Nicotine dependence, unspecified, uncomplicated, R31.29 - Other microscopic hematuria Patient Instructions: The patient had an opportunity to ask questions regarding the treatment plan. All questions were answered. Physical exam, labs, and imaging were discussed and reviewed in detail. As well as risks, benefits, and discussion of treatment choices. No major barriers to understanding were identified. The patient expressed understanding and agreement with the above treatment plan. The patient was made aware they should contact our office by phone for worsening of their current condition, the appearance of new symptoms, or with any questi ons or concerns. Compliance is encouraged with any medications and follow up testing that is ordered. It is a privilege to be allowed the opportunity to participate in? your urological care.? Again, if you have any questions or concerns If you have any questions or concerns please do not hesitate to contact me. The office is [phone]. This note is constructed using voice recognition software. While every effort has been made to ensure accuracy orthotist prosthetist errors may have been included. Yours sincerely, RAMYA Villa Coding Level of Care Code New Pt Level 3 (51072) Diagnoses Microscopic hematuria R31.29 Nicotine dependence F17.200
== END 2023-11-13 13:32 | disposition home or self-care (01) ==
PROVIDERS: PCP Internal Medicine; Visit Provider Nurse Practitioner Family
DX: R31.29 Other microscopic hematuria (principal); F17.200 Nicotine dependence, unspecified, uncomplicated; Z13.9 Encounter for screening, unspecified
CPT/HCPCS: 99203

== ENCOUNTER 2023-11-13 12:46 | Outpatient (REF) | payer MEDICARE, MEDICAID, SELFPAY ==
[2023-11-13 16:59] LABS: Urine Cytology See Pathology rpt
== END 2023-11-13 12:47 | disposition home or self-care (01) ==
LOC: HO.LNP 12:46
PROVIDERS: PCP Internal Medicine; Visit Provider Nurse Practitioner Family
DX: R31.29 Other microscopic hematuria (principal); F17.200 Nicotine dependence, unspecified, uncomplicated
CPT/HCPCS: 81003; 88112; 99202

== ENCOUNTER 2024-01-02 08:38 | Outpatient (REF) | payer MEDICARE, MEDICAID, SELFPAY ==
[2024-01-02 13:16] LABS: MANUAL DIFF FLAG NO
[2024-01-02 13:29] LABS: Basophils Absolute Auto 0.1 X10*3/uL (0.0-0.2); Basophils Percent Auto 0.6 % (0-2); Eosinophils Absolute Auto 0.3 X10*3/uL (0.0-0.4); Eosinophils Percent Auto 3.6 % (0-4); Hematocrit 38.6 % (37.0-47.0); Imm Gran Abs Auto 0.03 X10*3/uL (0.00-0.03); Imm Gran Pct Auto 0.3 % (0.0-0.4); Lymphocytes Absolute Auto 2.5 X10*3/uL (1.2-4.9); Lymphocytes Percent Auto 28.5 % (20-40); Mean Corpuscular HGB Conc 33.7 g/dl (31.0-35.0); Mean Corpuscular Hemoglobin 30.7 pg (27.0-33.0); Mean Corpuscular Volume 91.3 fL (80.0-98.0); Mean Platelet Volume 11.9 fL (9.4-12.3); Monocytes Absolute Auto 0.7 X10*3/uL (0.1-1.2); Monocytes Percent Auto 7.8 % (2-11); Neutrophils Absolute Auto 5.2 x10*3/uL (2.0-8.3); Neutrophils Percent Auto 59.2 % (45-73); Platelet Count 178 X10*3/uL (160-400); Red Blood Count 4.23 X10*6/uL (4.20-5.50); Red Cell Distribution Width 13.2 % (11.0-16.0); White Blood Count 8.7 X10*3/uL (4.8-10.8)
[2024-01-02 13:36] LABS: Alanine Aminotransferase 26 U/L (0-31); Albumin Level 4.2 g/dL (3.5-5.0); Alkaline Phosphatase 89 U/L (39-117); Anion Gap 13 (12-20); Aspartate Amino Transferase 23 U/L (5-31); Bilirubin Total 0.4 mg/dL (0.0-1.0); Blood Urea Nitrogen 18 mg/dL (9-16); Calcium 10.1 mg/dL (8.4-10.2); Carbon Dioxide 30 mmol/L (22-29); Chloride 101 mmol/L (96-108); Estimated Glomerular Filt Rate 47; Glucose Random 111 mg/dL (60-115); Potassium 4.6 mmol/L (3.3-5.1); Sodium 139 mmol/L (135-145)
[2024-01-05 19:29] LABS: HIV RNA PCR Qn Copies 203 copies/mL (NOT DETECTED); HIV RNA PCR Qn Log Copies 2.31 (NOT DETECTED)
[2024-01-06 16:33] LABS: Absolute CD3 Count 1957 cells/uL (840-3060); Absolute CD4 Count 915 cells/uL (490-1740); Absolute CD8 Count 1043 cells/uL (180-1170); Absolute Lymphocytes 2344 cells/uL (850-3900); CD4 CD8 Ratio 0.88 (0.86-5.00); Percent CD3 Cells 84 % (57-85); Percent CD4 Cells 39 % (30-61); Percent CD8 Cells 45 % (12-42)
== END 2024-01-02 08:39 | disposition home or self-care (01) ==
LOC: HO.HHCL 08:38
PROVIDERS: Visit Provider Student in an Organized Health Care Education/Training Program
DX: B20 Human immunodeficiency virus [HIV] disease (principal)
CPT/HCPCS: 36415; 80053; 85025; 86359; 86360; 87536

== ENCOUNTER 2024-01-28 13:48 | Outpatient (REF) | payer MEDICARE, MEDICAID, SELFPAY ==
[2024-01-29 22:18] LABS: Trichomonas vaginalis RNA NOT DETECTED (NOT DETECTED)
== END 2024-01-28 13:49 | disposition home or self-care (01) ==
LOC: HO.HHCLNP 13:48
PROVIDERS: Visit Provider Student in an Organized Health Care Education/Training Program
DX: B20 Human immunodeficiency virus [HIV] disease (principal)
CPT/HCPCS: 36415; 87661; 88112

== ENCOUNTER 2024-02-27 09:35 | Outpatient (REF) | payer OTHER, SELFPAY ==
--- NOTE | ~2024-02-27 | CT_ITS ---
EXAMINATION: CT ABDOMEN AND PELVIS WITHOUT AND WITH CONTRAST CLINICAL INFORMATION: Gross hematuria. COMPARISON: Abdominal ultrasound dated 02/27/2024. TECHNIQUE: Noncontrast CT of the abdomen and pelvis is performed followed by split bolus contrast-enhanced images using 85 mL Omnipaque 350 contrast. Postcontrast imaging is performed during the combined nephrogram and excretion phase. Sagittal and coronal reformatted images were obtained on the technologist's workstation for both the precontrast and postcontrast phases. This CT examination was performed using dose optimization techniques as appropriate, variously including the following: *Automated exposure control *Adjustment of mA and/or kV according to patient size (this includes techniques or standardized protocols for targeted exams where dose is matched to indication/reason for exam; i.e. extremities or head) *Use of iterative reconstruction technique DLP: 596 mGy-cm FINDINGS: LUNG BASES: The visualized lung bases are unremarkable. LIVER, GALLBLADDER, AND BILIARY TREE: The liver is normal in size, shape, and attenuation. No focal hepatic lesion or biliary ductal dilatation is present. The gallbladder is unremarkable with no evidence of radiopaque gallstones, gallbladder wall thickening, or obvious pericholecystic inflammatory changes. PANCREAS: Somewhat atrophic, but otherwise unremarkable, without ductal dilatation, mass or adjacent fat stranding or acute fluid. SPLEEN: Unremarkable. ADRENAL GLANDS: Unremarkable. KIDNEYS AND URETERS: The kidneys are normal in size, shape, and attenuation. No hydronephrosis, hydroureter, or calculi seen. There are benign, simple bilateral renal cysts, some too small for characterization with CT. These require no imaging follow-up. No perinephric stranding. BLADDER: Unremarkable. GASTROINTESTINAL TRACT: The small and large bowel are unremarkable. The appendix is unremarkable. ABDOMINAL WALL: There is a tiny fat containing umbilical hernia. LYMPH NODES: There are multiple shotty para-aortic lymph nodes, one of the largest on the left measuring 1.6 x 0.7 cm (18:29). No sizable abdominopelvic lymphadenopathy is seen. VASCULAR: There is moderate aortoiliac atherosclerotic calcification. No abdominal aortic aneurysm or dissection is seen. PELVIC VISCERA: There are coarse, calcified uterine fibroids. Arising from the left adnexal region (8:66), an 8.7 x 8.2 cm complex mass is seen, with Hounsfield value of 55.1 units. This shows an eccentric, paracentral 4.2 x 4.6 cm fat density collection of Hounsfield value -24.3 units. There are peripheral calcifications. The appearance suggests a possible left ovarian dermoid tumor with Rokitansky plug. Alternatively, the possibility of a degenerated fibroid is raised. OSSEUS STRUCTURES: There is moderate degenerative disc disease at L4-5, with vacuum disc phenomenon and endplate arthropathy. No acute or aggressive osseous finding is noted. CT/CT urogram IMPRESSION: 1. Arising from the left adnexa region in the vicinity of the left ovary, an 8.7 cm complex mass is seen, with CT features suggesting a possible dermoid tumor. A degenerated pedunculated fibroid is a further differential possibility. There are further coarse, calcified uterine fibroids. Gynecology evaluation and management is recommended. These findings could be more fully evaluated with ultrasound or MRI, if clinically indicated. 2. There are multiple shotty, nonpathologically enlarged para-aortic lymph nodes. These are nonspecific and should be managed on a clinical basis. No sizable abdominopelvic lymphadenopathy is seen. 3. There is moderate degenerative disc disease L4-5. Electronically signed by: Gumaro Khan MD 03/19/2024 04:11 PM EDT RP
[2024-02-27 10:10] LABS: Blood Urea Nitrogen 24 mg/dL (9-16); Estimated Glomerular Filt Rate 60
[2024-02-27] MEDS: iohexoL 350 MG/ML 100 ML INFUS..BTL 85 ML IV (10:43)
== END 2024-02-27 09:36 | disposition home or self-care (01) ==
LOC: HO.CT 09:35
PROVIDERS: PCP Internal Medicine; Visit Provider Nurse Practitioner Family
DX: R31.0 Gross hematuria (principal); F17.200 Nicotine dependence, unspecified, uncomplicated
CPT/HCPCS: 36415; 74178; 82565; 84520; Q9967

== ENCOUNTER 2024-03-27 07:28 | Outpatient (AMB) | payer OTHER, SELFPAY ==
--- NOTE | 2024-03-27 07:28 | A.OFFVIS_ITS ---
Intake Visit Reasons: follow up/Labs/CT(set) Intake Note: Patient presents today for follow up visit on: microscopic hematuria and CT Scan results Imaging Completed: 02/27/24 Urology Medications: none Blood Thinner: none Digital Performance Analyst Required: Yes Digital Performance Analyst Services: Digital Performance Analyst Present Digital Performance Analyst Name: [id number] Allergies Penicillins Allergy (Verified 03/27/24 07:56) Hives Medication List - Last Reconciled 03/27/24 by SAMMY VillaP- albuterol sulfate 90 mcg/actuation 0 mcg inhalation alendronate 70 mg PO QWEEK amlodipine 5 mg PO DAILY atorvastatin 20 mg PO DAILY ofmiondap-uuycghyk-uguglyi ala 50-200-25 mg (Biktarvy) 1 tab PO DAILY calcium carbonate-vitamin D3 500 mg-5 mcg (200 unit) (Oyster Shell Calcium- Vitamin D3) 1 tab PO DAILY cholecalciferol (vitamin D3) 50 mcg PO DAILY darunavir-cobicistat 800-150 mg-mg (Prezcobix) 1 tab PO DAILY dolutegravir (Tivicay) 50 mg PO DAILY emtricitabine-tenofovir alafen 200-25 mg (Descovy) 1 tab PO DAILY ferrous sulfate (FeroSul) 325 mg PO DAILY gabapentin 100 mg PO TID hydrochlorothiazide 50 mg PO DAILY ivermectin 6 mg PO BID lisinopril 40 mg PO DAILY melatonin 5 mg PO BEDTIME trazodone 25 mg PO BEDTIME PRN HPI Comments Details: Ysabel is a very pleasant Czech-speaking 68-year-old female patient of Dr. Proctor. She has a past medical history of liver cirrhosis, HIV, hep C, osteoporosis, hypercholesteremia, and hypertension. She is being followed up on today via telehealth. Of note, patient was seen approximately 4 months ago as a new patient for microscopic hematuria in the setting of nicotine dependence at which time a CT urogram was ordered for further assessment evaluation and urine was sent for urine cytology. These results were reviewed with the patient today. CT 02/22 notes that the kidneys are normal in size, shape, and attenuation. No hydronephrosis hydroureter or calculi seen. There are benign simple bilateral renal cysts, too small to characterize with CT. These require no imaging follow-up per radiology report. No perinephric stranding. The bladder is unremarkable. Discussed findings of 8.7 cm complex mass seen on left ovary and recommendation for gynecology evaluation per radiology report. Urine cytology: 01/22 Negative for high-grade urothelial carcinoma. We discussed at length potential causes of microscopic hematuria and further workup to include in office cystoscopy. She is aware and agreeable. She does have a history of smoking since the age of 9 of a proximally half a pack of cigarettes per day. She currently denies any bothersome urinary issues or concerns. She denies urinary urgency, incontinence, nocturia, hematuria, dysuria, foul smelling urine , changes to urinary stream, flank pain, fever, and or chills. She is happy with her current voiding parameters. She does report noting urinary frequency however notes urinary frequency after taking her hydrochlorothiazide. She otherwise offers no other issues or concerns at this time. 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 Review of Systems Const Reports no additional complaints Eyes Reports no additional complaints ENT Reports no additional complaints Card Reports as per HPI Resp Reports no additional complaints GI Reports as per HPI Reports as per HPI Musc Reports no additional complaints Neuro Reports no additional complaints Psych Reports no additional complaints Endo Reports no additional complaints Jean Pierre/Lymph Reports as per HPI Aller/Immun Reports as per HPI Physical Exam Const General: cooperative Resp Effort & Inspection: able to speak in complete sentences Psych Speech and movement: Clear speech present Attitude: cooperative Thought content: Normal thought content present Insight: Fair insight present (Psych) Judgement: Fair judgement present (Psych) Telehealth Telehealth Telehealth Platform: [facility] Location of provider rendering services: practice address Location of patient: address on file Patient Identification confirmed using: Name, : Yes Telehealth method: voice only Patient verbally consented to treatment: Yes Patient verbally consented to billing insurance company: Yes Patient informed of any privacy concerns related to visit: Yes Minutes spent on Phone/Video with Pt.: 22 Results Reviewed Results Reviewed: Date of Service: 02/27/24 EXAMINATION: CT ABDOMEN AND PELVIS WITHOUT AND WITH CONTRAST FINDINGS: LUNG BASES: The visualized lung bases are unremarkable. LIVER, GALLBLADDER, AND BILIARY TREE: The liver is normal in size, shape, and attenuation. No focal hepatic lesion or biliary ductal dilatation is present. The gallbladder is unremarkable with no evidence of radiopaque gallstones, gallbladder wall thickening, or obvious pericholecystic inflammatory changes. PANCREAS: Somewhat atrophic, but otherwise unremarkable, without ductal dilatation, mass or adjacent fat stranding or acute fluid. SPLEEN: Unremarkable. ADRENAL GLANDS: Unremarkable. KIDNEYS AND URETERS: The kidneys are normal in size, shape, and attenuation. No hydronephrosis, hydroureter, or calculi seen. There are benign, simple bilateral renal cysts, some too small for characterization with CT. These require no imaging follow-up. No perinephric stranding. BLADDER: Unremarkable. GASTROINTESTINAL TRACT: The small and large bowel are unremarkable. The appendix is unremarkable. ABDOMINAL WALL: There is a tiny fat containing umbilical hernia. LYMPH NODES: There are multiple shotty para-aortic lymph nodes, one of the largest on the left measuring 1.6 x 0.7 cm (18:29). No sizable abdominopelvic lymphadenopathy is seen. VASCULAR: There is moderate aortoiliac atherosclerotic calcification. No abdominal aortic aneurysm or dissection is seen. PELVIC VISCERA: There are coarse, calcified uterine fibroids. Arising from the left adnexal region (8:66), an 8.7 x 8.2 cm complex mass is seen, with Hounsfield value of 55.1 units. This shows an eccentric, paracentral 4.2 x 4.6 cm fat density collection of Hounsfield value -24.3 units. There are peripheral calcifications. The appearance suggests a possible left ovarian dermoid tumor with Rokitansky plug. Alternatively, the possibility of a degenerated fibroid is raised. OSSEUS STRUCTURES: There is moderate degenerative disc disease at L4-5, with vacuum disc phenomenon and endplate arthropathy. No acute or aggressive osseous finding is noted. CT/CT urogram IMPRESSION: 1. Arising from the left adnexa region in the vicinity of the left ovary, an 8.7 cm complex mass is seen, with CT features suggesting a possible dermoid tumor. A degenerated pedunculated fibroid is a further differential possibility. There are further coarse, calcified uterine fibroids. Gynecology evaluation and management is recommended. These findings could be more fully evaluated with ultrasound or MRI, if clinically indicated. 2. There are multiple shotty, nonpathologically enlarged para-aortic lymph nodes. These are nonspecific and should be managed on a clinical basis. No sizable abdominopelvic lymphadenopathy is seen. 3. There is moderate degenerative disc disease L4-5. Assessment & Plan Assessment & Plan (1) Microscopic hematuria: Code(s): R31.29 - Other microscopic hematuria Category: Medical (2) Nicotine dependence: Code(s): F17.200 - Nicotine dependence, unspecified, uncomplicated Category: Medical (3) Mass of left ovary: Code(s): N83.8 - Other noninflammatory disorders of ovary, fallopian tube and broad ligament Category: Medical Plan Recent urine cytology results reviewed with the patient today; as noted above. Recent CT results reviewed with the patient today; as noted above. We discussed in office cystoscopy; risks and benefits. All questions were answered. Will refer to rn gynecology for further assessment evaluation of question last ovarian mass on CT. Discussed potential causes of microscopic hematuria in the setting of nicotine dependence. Discussed, educated, and stressed the importance of limiting/quitting nicotine dependence for over all health and well being. Patient currently denies any bothersome urinary issues or concerns. She reports be happy with current voiding parameters. Follow-up in office cystoscopy; or sooner with any issues, questions, and or concerns. Orders: Referrals BRAKE ADJUSTER Referral N83.8 - Other noninflammatory disorders of ovary, fallopian tube and broad ligament Patient Instructions: The patient had an opportunity to ask questions regarding the treatment plan. All questions were answered. Physical exam, labs, and imaging were discussed and reviewed in detail. As well as risks, benefits, and discussion of treatment choices. No major barriers to understanding were identified. The patient expressed understanding and agreement with the above treatment plan. The patient was made aware they should contact our office by phone for worsening of their current condition, the appearance of new symptoms, or with any questions or concerns. Compliance is encouraged with any medications and follow up testing that is ordered. It is a privilege to be allowed the opportunity to participate in? your urological care.? Again, if you have any questions or concerns If you have any questions or concerns please do not hesitate to contact me. The office is [phone]. This note is constructed using voice recognition software. While every effort has been made to ensure accuracy superintendent mechanical errors may have been included. Yours sincerely, RAMYA Villa Coding Level of Care Code Tele Est Pt Level 3 (98968) Complex EM visit Add On G2211 Diagnoses Microscopic hematuria R31.29 Nicotine dependence F17.200 Mass of left ovary N83.8 Time Spent (min) 22
== END 2024-03-27 08:30 | disposition home or self-care (01) ==
LOC: HO.HUSH 07:28
PROVIDERS: PCP Internal Medicine; Visit Provider Nurse Practitioner Family
DX: R31.29 Other microscopic hematuria (principal); F17.200 Nicotine dependence, unspecified, uncomplicated; N83.8 Other noninflammatory disorders of ovary, fallopian tube and broad ligament
CPT/HCPCS: 99213; G2211

== ENCOUNTER → 2024-03-27 07:28 | Outpatient (BNVA) | payer OTHER, SELFPAY | PROVIDERS: PCP Internal Medicine; Visit Provider Nurse Practitioner Family ==

== ENCOUNTER 2024-05-07 13:56 | Outpatient (AMB) | payer OTHER, SELFPAY ==
--- NOTE | 2024-05-07 14:08 | MHC.OFFVIS ---
Intake Visit Reasons: cysto(Microhematuria) Intake Note: Patient is present for Cystoscopy Urology Medication:NONE Antibiotic Allergy:NONE Blood Thinner:NONE Lot:[id number] Exp:05/05/27 Safety Instructor Required: No Allergies Penicillins Allergy (Verified 06/17/24 13:54) Hives HPI Comments Details: Ysabel is a pleasant Emirati-speaking female. She is a patient of Dr. Proctor. 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 Information consent for procedure given to the patient. Discussed technical aspects, risks, benefits and alternatives in full. Addressed all of the patient's questions and concerns regarding the procedure. The patient demonstrated knowledge and understanding. They wish to proceed with this procedure. Preparation The patient was prepped in the usual manner. A law office manager was present and in the room. Genitalia was prepped with betadine solution in a sterile manner. Lidocaine Jelly 2% was placed into the urethra and 16Fr flexible Olympus cystoscope was inserted into the meatus after adequate lubrication. Procedure Meatus normal position Urethra normal Bladder examination with retroflexion of cystoscope Bladder Orifices normal shape and position Trigone normal Bladder Capacity - Trabeculations - Cellule Formation - Diverticulum Formation - Mucosal Erythema - Bladder Tumor - [id number] DISPOSABLE SCOPE URO-G FLEXIBLE SCOPE Procedure code (CPT) selection complete Office Meds lidocaine HCl 2 % mucosal jelly in applicator Performing Provider: Daniel Melchor MD [facility] Administered by: Keith Rodrigeuz LPN on 05/07/24 15:05 Dose Route Admin Location Dispensed Lot Number Expiration Date [facility] [employer] Apprentice 10 mL intra-urethral 10 mL nitrofurantoin monohydrate/macrocrystals 100 mg capsule Performing Provider: Daniel Melchor MD Performing Location: [facility] Administered by: Keith Rodriguez LPN on 05/07/24 15:05 Dose Route Admin Location Dispensed Lot Number Expiration Date [facility] [employer] 100 mg PO 1 cap naproxen 500 mg tablet Performing Provider: Daniel Melchor MD Performing Location: [facility] Administered by: Keith Rodriguez LPN on 05/07/24 15:05 Dose Route Admin Location Dispensed Lot Number Expiration Date [facility] [employer] 500 mg PO 1 tab Results AMB Urinalysis, Automated UA Leukoctes 0 Kelly/uL Last Edit by TRENA Marie on 05/07/24 14:47 UA Nitrite Negative Last Edit by TRENA Marie on 05/07/24 14:47 UA Urobilinogen 0.2 mg/dL Last Edit by TRENA Marie on 05/07/24 14:47 UA Protein 0 mg/dL Last Edit by TRENA Marie on 05/07/24 14:47 UA pH 6.5 Last Edit by TRENA Marie on 05/07/24 14:47 UA Blood 80 Rinku/uL Last Edit by TRENA Marie on 05/07/24 14:47 UA Specific [place] 1.015 Last Edit by TRENA Marie on 05/07/24 14:47 UA Ketone Negative Last Edit by TRENA Marie on 05/07/24 14:47 UA Bilirubin 0 mg/dL Last Edit by TRENA Marie on 05/07/24 14:47 UA Glucose 0 mg/dL Last Edit by TRENA Marie on 05/07/24 14:47 Results Reviewed Results Reviewed: Laboratory Last Values Urine pH (Auto) 6.5 05/07/24 14:46 Specific [place] (Auto) 1.015 05/07/24 14:46 Urine Protein (Auto) 0 mg/dL 05/07/24 14:46 Glucose (UA)(Auto) 0 mg/dL 05/07/24 14:46 Urine Ketones (Auto) Negative 05/07/24 14:46 Urine Blood (Auto) 80 Rinku/uL 05/07/24 14:46 Urine Nitrite (Auto) Negative 05/07/24 14:46 Urine Bilirubin (Auto) 0 mg/dL 05/07/24 14:46 Urine Urobilinogen (Auto) 0.2 mg/dL 05/07/24 14:46 Leukocyte Esterase (Auto) 0 Kelly/uL 05/07/24 14:46 Assessment & Plan Assessment & Plan (1) Microscopic hematuria: Code(s): R31.29 - Other microscopic hematuria Category: Medical Plan Twelve month follow-up nurse-practitioner Orders: Orders AMB Urinalysis Automated 05/07/24 Z13.9 - Encounter for screening, unspecified AMB Cystoscopy 05/07/24 R31.29 - Other microscopic hematuria Patient Instructions: Imaging studies, laboratory and physical exam results were discussed and reviewed in detail. No major barriers to patient understanding were identified. An opportunity to ask questions regarding the treatment plan was provided. All questions were answered. The patient expressed understanding and agreement with the above treatment plan. The patient is aware they should contact our office by phone for worsening of their current condition or the appearance of new urologic symptoms. Compliance is encouraged with any medications and followup testing that is ordered. It is a privilege to participate in the urologic care of your patient. If you have any questions or concerns regarding treatment for the above conditions, or other urologic issues, please do not hesitate to contact me. The office telephone contact is [phone]. This note is constructed using voice recognition software. While every effort has been made to ensure accuracy circular tank cooper errors may have been included. Yours sincerely, Dr Daniel Melchor MD, [facility] - Urology Providers of Expert, Compassionate Care for the Genitourinary System Coding Level of Care Code Est Pt Level 3 (57688) Diagnoses Microscopic hematuria R31.29 CPT Codes Cystoscopy - CPT: [id number] ([id number])
== END 2024-05-07 15:35 | disposition home or self-care (01) ==
LOC: HO.HUSH 13:56
PROVIDERS: PCP Internal Medicine; Visit Provider Urology
DX: R31.29 Other microscopic hematuria (principal)
CPT/HCPCS: 52000; 99213

== ENCOUNTER → 2024-05-07 13:56 | Outpatient (BNVA) | payer OTHER, SELFPAY | PROVIDERS: PCP Internal Medicine; Visit Provider Urology | DX: R31.29 Other microscopic hematuria (principal); N28.1 Cyst of kidney, acquired | CPT/HCPCS: 52000; 81003; 99212 ==

== ENCOUNTER 2024-05-12 12:18 | Outpatient (REF) | payer OTHER, SELFPAY ==
--- NOTE | ~2024-05-12 | US_ITS ---
EXAMINATION: US TRIPLEX LOWER EXTREMITY, RIGHT CLINICAL INFORMATION: Right leg swelling COMPARISON: None available. TECHNIQUE: Color-flow triplex imaging with spectral analysis and compression Doppler were performed on the right lower extremity. FINDINGS: Respiratory variation, normal compression and augmented flow are noted throughout the right lower extremity. The visualized common femoral vein, superficial femoral vein, profunda femoral vein, popliteal vein and midcalf peroneal and posterior tibial venous segments show no evidence of deep venous thrombosis. There is no Mora's cyst. US/US venous duplex LE RT IMPRESSION: No evidence of deep venous thrombosis involving the right lower extremity. Electronically signed by: Christine Pacheco MD 05/12/2024 01:06 PM EST Workstation: [id number]
[2024-05-13 11:13] LABS: HPV 16,18/45 See PAP report
== END 2024-05-12 12:19 | disposition home or self-care (01) ==
LOC: HO.US 12:18
PROVIDERS: PCP Internal Medicine; Visit Provider Internal Medicine
DX: Z12.4 Encounter for screening for malignant neoplasm of cervix (principal); Z11.51 Encounter for screening for human papillomavirus (HPV); R60.0 Localized edema
CPT/HCPCS: 87624; 88175; 93971

== ENCOUNTER 2024-05-22 08:04 | Outpatient (REF) | payer OTHER, SELFPAY ==
[2024-05-22 11:08] LABS: Appearance Urine Cloudy; Color Urine Yellow; Glucose Urine UA Negative (Negative); Leukocyte Esterase Urine Large (3+) (Negative); Nitrite Urine Negative (Negative); PH 5.5 (5.0-9.0); Specific Gravity - Urine 1.015 (1.005-1.025); UMIC TRIGGER UACC YES; Urine Blood Moderate (2+) (Negative); Urine Ketones Negative (Negative); Urine Protein Negative (Neg-Trace)
[2024-05-22 11:15] LABS: Bacteria Urine 1+ (None Seen); Hyaline Casts Urine 0-2 /LPF (0-2); UACC Culture Trigger YES; WBC Urine 21-50 /HPF (0-5)
[2024-05-22 11:21] LABS: MANUAL DIFF FLAG NO
[2024-05-22 11:25] LABS: Basophils Absolute Auto 0.1 X10*3/uL (0.0-0.2); Basophils Percent Auto 0.6 % (0-2); Eosinophils Absolute Auto 0.3 X10*3/uL (0.0-0.4); Eosinophils Percent Auto 4.3 % (0-4); Hematocrit 36.9 % (37.0-47.0); Hemoglobin 12.7 g/dl (12.0-16.0); Imm Gran Abs Auto 0.03 X10*3/uL (0.00-0.03); Imm Gran Pct Auto 0.4 % (0.0-0.4); Lymphocytes Absolute Auto 2.2 X10*3/uL (1.2-4.9); Lymphocytes Percent Auto 28.4 % (20-40); Mean Corpuscular HGB Conc 34.4 g/dl (31.0-35.0); Mean Corpuscular Hemoglobin 29.7 pg (27.0-33.0); Mean Corpuscular Volume 86.4 fL (80.0-98.0); Mean Platelet Volume 12.2 fL (9.4-12.3); Monocytes Absolute Auto 0.5 X10*3/uL (0.1-1.2); Neutrophils Absolute Auto 4.6 x10*3/uL (2.0-8.3); Neutrophils Percent Auto 60.3 % (45-73); Platelet Count 158 X10*3/uL (160-400); Red Blood Count 4.27 X10*6/uL (4.20-5.50); Red Cell Distribution Width 13.1 % (11.0-16.0); White Blood Count 7.7 X10*3/uL (4.8-10.8)
[2024-05-22 11:35] LABS: Estimated Average Glucose 108 mg/dL; Hemoglobin A1C 116.2596 umol/L; Hemoglobin A1c % 5.4 % (<6.0)
[2024-05-22 12:00] LABS: Alanine Aminotransferase 21 U/L (0-31); Albumin Level 4.2 g/dL (3.5-5.0); Anion Gap 12 (12-20); Aspartate Amino Transferase 25 U/L (5-31); Bilirubin Total 0.3 mg/dL (0.0-1.0); Blood Urea Nitrogen 24 mg/dL (9-16); Calcium 9.5 mg/dL (8.4-10.2); Carbon Dioxide 29 mmol/L (22-29); Chloride 104 mmol/L (96-108); Cholesterol 161 mg/dL (<200); Estimated Glomerular Filt Rate > 60; Glucose Random 109 mg/dL (60-115); HDL Cholesterol 39 mg/dL (>40); LDL Cholesterol Calculated 79 mg/dL (<100); Sodium 141 mmol/L (135-145); Total Protein 7.4 g/dL (6.5-8.0); Triglycerides 217 mg/dL (<150)
[2024-05-22 12:04] LABS: HBc Num1 2.13 S/CO (0.00-0.79); HBsAGNum1 0.52 S/CO (0.00-0.99); Hepatitis B Surface Antigen Negative (Negative); ~Hepatitis B Surface Antibody NONREACTIVE (Nonreactive); ~Hepatitis C Antibody Reactive (Nonreactive)
[2024-05-22 12:11] LABS: Alkaline Phosphatase 67 U/L (39-117)
[2024-05-22 12:55] LABS: Reflex LDLD? No
[2024-05-22 13:09] LABS: HBc Num2 2.16 S/CO; HBc Num3 2.18 S/CO; Hepatitis B Core Antibody Reactive (Nonreactive)
[2024-05-22 18:14] LABS: CT PCR NOT DETECTED (Not Detect.); NG PCR NOT DETECTED (Not Detect.)
[2024-05-24 05:09] LABS: Hepatitis B Core Antibody IgM NON-REACTIVE (NON-REACTIVE)
[2024-05-24 05:39] LABS: Mumps Virus IgG Antibody <9.00 AU/mL; Rubella IgG Antibody <0.90 Index; Rubeola IgG (Measles) >300.00 AU/mL
[2024-05-25 07:43] LABS: TS Negative Control Passed; TS Panel A 0; TS Panel B 0; TS Positive Control Passed; TSpotTB Negative (Negative)
[2024-05-25 11:18] LABS: HCV Log PCR <1.18 NOT DETECTED Log IU/mL (NOT DETECTED); HepC Viral Load <15 NOT DETECTED IU/mL (NOT DETECTED)
[2024-05-25 11:24] LABS: HIV RNA PCR Qn Copies 101 copies/mL (NOT DETECTED)
[2024-05-26 17:38] LABS: RPR Rapid Plasma Reagin NON-REACTIVE (NON-REACTIVE)
[2024-05-27 17:43] LABS: Absolute CD3 Count 1848 cells/uL (840-3060); Absolute CD4 Count 842 cells/uL (490-1740); Absolute CD8 Count 1038 cells/uL (180-1170); Absolute Lymphocytes 2158 cells/uL (850-3900); CD4 CD8 Ratio 0.81 (0.86-5.00); Percent CD3 Cells 86 % (57-85); Percent CD4 Cells 39 % (30-61); Percent CD8 Cells 48 % (12-42)
[2024-06-02 22:59] LABS: HIV 1 Integrase Proviral DNA DETECTED; HIV 1 PR RT Proviral DNA DETECTED
== END 2024-05-22 08:05 | disposition home or self-care (01) ==
LOC: HO.HHCL 08:04
PROVIDERS: Visit Provider Student in an Organized Health Care Education/Training Program
DX: Z21 Asymptomatic human immunodeficiency virus [HIV] infection status (principal); R82.90 Unspecified abnormal findings in urine
CPT/HCPCS: 36415; 80053; 80061; 81001; 83036; 85025; 86359; 86360; 86481; 86592; 86704; 86705; 86706; 86735; 86762; 86765; 86803; 87086; 87340; 87491; 87522; 87536; 87591; 87900; 87901; 87906

== ENCOUNTER 2024-06-17 13:45 | Outpatient (AMB) | payer OTHER, SELFPAY ==
--- OUTSIDE RECORDS SUMMARY | 2024-06-17 13:47 | XMS_ITS | Patient Health Record ---
Demographics Address [address] [place] [address] Mobile Preferred Language Unknown Marital Status unmarried Church Affiliation Unknown Race Ethnic Group or Author Organization [facility] Address [address] [place] [address] Care Team Providers Care Charging Operator Name Role Phone Charmaine Gary Primary Care Provider Greg Raymundo [phone] REASON FOR REFERRAL No Information MEDICATIONS Medication SIG (Take, Route, Frequency, Duration) Notes Start Date End Date Status Lisinopril-hydroCHLOROthia zide Active Naproxen Active Melatonin Active Prezcobix Active Descovy Active Tivicay Active IMMUNIZATIONS Vaccine Route Administration Date Status Comme nts Flu vaccine no Preserv 3 and > Unknown 05/08/2018 Admin istered SOCIAL HISTORY Tobacco Use: Social History Observation Description Date Details (start date - stop date) Current Smoker NA - NA Sex Assigned At : Social History Observation Description Sex Assigned At Unknown Tobacco Use/Smoking Question Answer Notes Patient is a current smoker How often do you smoke cigarettes? every day How many cigarettes a day do you smoke? 5 or les s How soon after you wake up do you smoke your fir st cigarette? within 5 minutes Are you interested in quitting? Not ready to darin t Alcohol Screen Question Answer Notes Did you have a drink containing alcohol in the p ast year? No Points 0 Interpretation Negative PROBLEMS Problem Type ICD Code Onset Dates Problem Status W/U Status Risk SNOMED Code Notes Problem Liver fibrosis (K74.0) Active confirmed 63210820 Problem Encounter for screening for malignant neoplasm of colon (Z12.11) Active confirmed 584416838 Problem History of hepatitis C (Z86.19) Active confirmed 50746230357007 Problem Gastritis, unspecified, without bleeding (K29.70) Active confirmed 14641288 Problem History of adenomatous polyp of colon (Z86.010) Active confirmed 479526547 Problem Acute gastric ulcer without hemorrhage or perforation (K25.3) Active confirmed 05399246 PLAN OF TREATMENT Future Test Test Name Order Date UPPER GI ENDOSCOPY 02/14/2018 COLONOSCOPY 02/14/2018 Insurance Providers Payer Name Payer Address Payer Phone Subscriber Number Group Number Insured Name Patient Relationship to Insured Coverage Start Date Coverage End Date MEDICARE OF [place] [address] [place] [address] [id number] KD SANCHEZ Self - patient is the insured MEDICAID OF [employer] [address] [place] [id number] [id number] KD SANCHEZ Self - patient is the insured MEDICAL (GENERAL) HISTORY Medical History History ICD Code Stroke > 20 yrs ago Cirrhosis based on F4 fibrosis score Hypertension Hx of Hep C Genotype 1A -gaurav ated with Jeanne in early 2017---neg Hep C viral load in 04/2018 HIV Gallstones--asymptomatic--reviewed with patient on 02/14/18 Denies PR,DM,Lung disease,renal disease Colonoscopy 07/2018-1 small tubular adeno ma removed EGD in 07/2018-small gastric ulcer-bx positive for H.pylori, no varices--she was treated with 14 days of antibiotics and had a negative stool for H. pylori antigen test in January of 2019 Surgical History Surgery Date(Month/Year) Left wrist Tubal ligation
--- NOTE | 2024-06-17 13:52 | A.OFFVIS_ITS ---
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 It is on and off. Patient states her legs itch a lot , she scratches until she bleeds sometimes. 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 We utilized Sejal as an seismic interpreter. Complaints include swelling of lower extremities, fatigue, and heaviness of the lower extremities. It has been affecting their daily activities including walking, standing, and physical activity. It is noted more so in right leg. She is a diabetic. She is a current everyday smoker, smokes 1 pack per 3 days. Patient denies any previous venous surgery or injections. Patient denies any history of DVT/ PE. Patient denies any history of phlebitis. Trial of compression includes - elevation only at bedtime They now present for vascular evaluation regarding their varicose veins. 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 Review of Systems Const Reports as per HPI and Denies weakness ENT Reports Normal hearing present and Denies dizziness Card Reports as per HPI, Denies chest pain, Denies chest pain at rest, Denies chest pain with activity, Denies dyspnea and Denies dyspnea on exertion Resp Reports as per HPI, Denies cough, Denies dyspnea and Denies dyspnea on exertion GI Reports as per HPI, Denies abdominal pain, Denies nausea and Denies vomiting Musc Denies numbness Skin/Breast Reports as per HPI, Denies erythema and Denies wounds Neuro Reports Normal hearing present, Denies dizziness, Denies numbness, Denies Sensory deficit (Neuro) and Denies weakness Psych Reports no additional complaints Endo Reports no additional complaints Physical Exam Const General: healthy appearing and no acute distress Orientation/consciousness: patient oriented x3 HEENT Head: Yes normal to inspection Ears: hearing grossly normal bilaterally Mouth: Normal oral and palatal mucosa present Resp Effort & Inspection: normal respiratory effort and able to speak in complete sentences Auscultation: clear to auscultation bilaterally Cardio Jugular venous distension: no JVD Rate: regular rate Rhythm: regular rhythm Heart sounds: S1 normal heart sound present and S2 normal heart sound present Bruits: no abdominal aortic bruits, no carotid bruits, no femoral bruits and no renal bruits Peripheral pulses: Peripheral pulses 2+ throughout GI Inspection: Yes normal to inspection Palpation (GI): No Abdominal aortic bruit present Skin General skin exam: no rashes or lesions noted Wounds: no wounds Hair: normal Neuro General: patient oriented x3 Cranial nerves: Yes Normal hearing present Cognition (Neuro): normal cognition Gait exam (Neuro): Normal gait present Motor exam (neuro): 5/5 motor strength present throughout Sensory Exam: No Sensory deficit (Neuro) Extrem Other: Bilateral lower extremities: 1+ peripheral edema noted. Palpable DP pulses. Discoloration noted around her ankles. CEAP: C - 3/4 E - primary A - superficial P - reflux General: Yes normal to inspection, Yes full ROM, Yes capillary refill normal and Yes normal gait Assessment & Plan Assessment & Plan (1) Varicose veins of both lower extremities with inflammation: Code(s): I83.11 - Varicose veins of right lower extremity with inflammation; I83.12 - Varicose veins of left lower extremity with inflammation Category: Medical Plan: Ysabel is presenting today as a referral from her PCP for ongoing bilateral lower extremity swelling with cramping and heaviness, going on for months. In short, the patient has evidence of venous insufficiency. I have discussed the pathophysiology with the patient. In addition I have provided informational material regarding venous disease to the patient. We have discussed conservative measures including compression, elevation, and exercise. I were unable to provide a handout regarding appropriate use of compression stockings and where to purchase good compression stockings as well, due to it not being in Albanian; however, Sejal was able to discuss compression stockings in Albanian with her. I have taken the liberty of ordering venous insufficiency testing with the patient. They will follow up with me after testing. The patient had an opportunity to ask questions regarding the treatment plan. All questions were answered. Imaging studies, laboratory studies and physical exam results were discussed and reviewed in detail. No major barriers to understanding were identified. The patient expressed understanding and agreement with the above treatment plan. The patient is aware they should contact our office by phone for worsening of the current condition or the appearance of new symptoms. Thank you for allowing me to participate in the vascular care of this patient. If you have any questions or concerns regarding the treatment for the above condition please do not hesitate to contact me. The office telephone contact is [phone]. This note is constructed using voice recognition software. While every effort has been made to ensure accuracy, telecom coordinator errors may have been included. Thank you for allowing me to participate in the care of your patient. Yours sincerely, JANE Davison Orders: Orders US venous duplex LE BI 1 Week I83.11 - Varicose veins of right lower extremity with inflammation, I83.12 - Varicose veins of left lower extremity with inflammation Coding Level of Care Code New Pt Level 4 (13097) Diagnoses Varicose veins of both lower extremities with inflammation I83.11; I83.12
== END 2024-06-17 14:08 | disposition home or self-care (01) ==
PROVIDERS: PCP Internal Medicine; Visit Provider Physician Assistant Surgical
DX: I83.11 Varicose veins of right lower extremity with inflammation (principal); I83.12 Varicose veins of left lower extremity with inflammation
CPT/HCPCS: 99204

== ENCOUNTER → 2024-06-17 13:45 | Outpatient (BNVA) | payer OTHER, SELFPAY | PROVIDERS: PCP Internal Medicine; Visit Provider Physician Assistant Surgical | DX: I83.11 Varicose veins of right lower extremity with inflammation (principal); I83.12 Varicose veins of left lower extremity with inflammation | CPT/HCPCS: 99202 ==

== ENCOUNTER 2024-07-09 10:21 | Outpatient (REF) | payer OTHER, SELFPAY ==
--- NOTE | ~2024-07-09 | US_ITS ---
CLINICAL HISTORY: I83.11 - Varicose veins of right lower extremity with inflammation Venous duplex ultrasound bilateral lower extremity Comparison: None Findings: The visualized deep veins are fully compressible with normal Doppler color flow and spectral tracings. No popliteal cyst. IMPRESSION: 1. Negative for bilateral lower extremity deep vein thrombosis. This document has been electronically signed by: Mitch Gilbert MD on 07/11/2024 08:03:30
--- OUTSIDE RECORDS SUMMARY | 2024-07-09 10:46 | XMS_ITS | Patient Health Record ---
Demographics Address [address] [place] [address] Mobile Preferred Language Unknown Marital Status unmarried Jewish Affiliation Unknown Race Ethnic Group or Author Organization [facility] Address [address] [place] [address] Care Team Providers Care Dredging Inspector Name Role Phone Charmaine Gary Primary Care Provider Greg Raymundo [phone] REASON FOR REFERRAL No Information MEDICATIONS Medication [...] Notes Problem Liver fibrosis (K74.0) Active confirmed 34898386 Problem Encounter for screening for malignant neoplasm of colon (Z12.11) Active confirmed 001296032 Problem History of hepatitis C (Z86.19) Active confirmed [id number] Problem Gastritis, unspecified, without bleeding (K29.70) Active confirmed 74031822 Problem History of adenomatous polyp of colon (Z86.010) Active confirmed 923615702 Problem Acute gastric ulcer without hemorrhage or perforation (K25.3) Active confirmed 09364554 PLAN OF TREATMENT Future Test Test Name Order Date UPPER GI ENDOSCOPY 02/14/2018 COLONOSCOPY 02/14/2018 Insurance Providers Payer Name Payer Address Payer Phone Subscriber Number Group Number Insured Name Patient Relationship to Insured Coverage Start Date Coverage End Date MEDICARE OF [place] [address] [place] [address] [id number] KD SANCHEZ Self - patient is the insured MEDICAID OF [employer] [address] [place] [phone] [id number] KD SANCHEZ Self - patient is the insured MEDICAL (GENERAL) HISTORY Medical History History ICD Code Stroke > 20 yrs ago Cirrhosis based on F4 fibrosis score Hypertension Hx of Hep C Genotype 1A -gaurav ated with Jeanne in early 2017---neg Hep C viral load in 04/2018 HIV Gallstones--asymptomatic--reviewed with patient on 02/14/18 Denies [place],DM,Lung disease,renal disease Colonoscopy 07/2018-1 small tubular adeno ma removed EGD in 07/2018-small gastric ulcer-bx positive for H.pylori, no varices--she was treated with 14 days of antibiotics and had a negative stool for H. pylori antigen test in January of 2019 Surgical History Surgery Date(Month/Year) Left wrist Tubal ligation
== END 2024-07-09 10:22 | disposition home or self-care (01) ==
LOC: HO.US 10:21
PROVIDERS: PCP Internal Medicine; Visit Provider Physician Assistant Surgical
DX: I83.11 Varicose veins of right lower extremity with inflammation (principal); I83.12 Varicose veins of left lower extremity with inflammation
CPT/HCPCS: 93970

== ENCOUNTER → 2024-07-09 10:25 | Outpatient (BNV) | payer OTHER, SELFPAY | PROVIDERS: PCP Internal Medicine; Visit Provider Specialist | DX: I83.11 Varicose veins of right lower extremity with inflammation (principal) | CPT/HCPCS: 93970 ==

== ENCOUNTER 2024-07-22 10:01 | Outpatient (AMB) | payer OTHER, SELFPAY ==
--- NOTE | 2024-07-22 10:06 | MHC.OFFVIS ---
Intake Visit Reasons: follow up s/p US 07/09/24 Intake Note: Patient presents for follow up US. Patient has no complaints. Allergies Penicillins Allergy (Verified 07/22/24 10:10) Hives HPI HPI follow up s/p US 07/09/24: Details: Ysabel is presenting today with her family member for a follow up to venous insufficiency ultrasound, performed on 07/09/2024. Her family member is interpreting for us. She states she continues with swelling and pain, intermittently. She does continue to smoke approximately 1 pack of cigarettes every 3 days. 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 Review of Systems Const Reports as per HPI and Denies weakness ENT Reports Normal hearing present and Denies dizziness Card Reports as per HPI, Denies chest pain, Denies chest pain at rest, Denies chest pain with activity, Denies dyspnea and Denies dyspnea on exertion Resp Reports as per HPI, Denies cough, Denies dyspnea and Denies dyspnea on exertion GI Reports as per HPI, Denies abdominal pain, Denies nausea and Denies vomiting Musc Denies numbness Skin/Breast Reports as per HPI, Denies erythema and Denies wounds Neuro Reports Normal hearing present, Denies dizziness, Denies numbness, Denies Sensory deficit (Neuro) and Denies weakness Psych Reports no additional complaints Endo Reports no additional complaints Physical Exam Const General: healthy appearing and no acute distress Orientation/consciousness: patient oriented x3 HEENT Head: Yes normal to inspection Ears: hearing grossly normal bilaterally Mouth: Normal oral and palatal mucosa present Resp Effort & Inspection: normal respiratory effort and able to speak in complete sentences Auscultation: clear to auscultation bilaterally Cardio Jugular venous distension: no JVD Rate: regular rate Rhythm: regular rhythm Heart sounds: S1 normal heart sound present and S2 normal heart sound present Bruits: no abdominal aortic bruits, no carotid bruits, no femoral bruits and no renal bruits Peripheral pulses: Peripheral pulses 2+ throughout GI Inspection: Yes normal to inspection Palpation (GI): No Abdominal aortic bruit present Skin General skin exam: no rashes or lesions noted Wounds: no wounds Hair: normal Neuro General: patient oriented x3 Cranial nerves: Yes Normal hearing present Cognition (Neuro): normal cognition Gait exam (Neuro): Normal gait present Motor exam (neuro): 5/5 motor strength present throughout Sensory Exam: No Sensory deficit (Neuro) Extrem Other: Bilateral lower extremities: 1+ peripheral edema noted. Palpable DP pulses. Discoloration noted around her ankles. General: Yes normal to inspection, Yes full ROM, Yes capillary refill normal and Yes normal gait Results Reviewed Results Reviewed: Brief summary of venous insufficiency testing is as follows: right great saphenous vein: negative right small saphenous vein: negative right accessory vein: none present left great saphenous vein: negative left small saphenous vein: negative left accessory vein: none present Please note there is no evidence of any venous aneurysms or significant tortuosity Assessment & Plan Assessment & Plan (1) Varicose veins of both lower extremities with inflammation: Code(s): I83.11 - Varicose veins of right lower extremity with inflammation; I83.12 - Varicose veins of left lower extremity with inflammation Category: Medical Plan: Ysabel is presenting today as a follow up to venous insufficiency ultrasound, performed on 07/09/2024. There was no venous insufficiency noted on the ultrasound. We discussed with her to reach out to her primary care to get further assessment of the swelling and pain. We did endorse continuing with elevation, compression stockings, and the importance of physical activity. We discussed that if she does have any vascular concerns in the future she can reach out to us any point. We discussed the importance of a well-balanced diet and smoking cessation. Thank you for allowing us to participate in the patient's care. If there are any questions or concerns, please do not hesitate to reach out to us. Coding Level of Care Code Est Pt Level 4 (66183) Diagnoses Varicose veins of both lower extremities with inflammation I83.11; I83.12 Comment Review of venous insufficiency ultrasound
== END 2024-07-22 10:25 | disposition home or self-care (01) ==
PROVIDERS: PCP Internal Medicine; Visit Provider Physician Assistant Surgical
DX: I83.11 Varicose veins of right lower extremity with inflammation (principal); I83.12 Varicose veins of left lower extremity with inflammation
CPT/HCPCS: 99214

== ENCOUNTER → 2024-07-22 10:01 | Outpatient (BNVA) | payer OTHER, SELFPAY | PROVIDERS: PCP Internal Medicine; Visit Provider Physician Assistant Surgical | DX: I83.11 Varicose veins of right lower extremity with inflammation (principal); I83.12 Varicose veins of left lower extremity with inflammation; F17.210 Nicotine dependence, cigarettes, uncomplicated | CPT/HCPCS: 99212 ==

== ENCOUNTER 2024-08-25 09:10 | Outpatient (REF) | payer MEDICAID, SELFPAY ==
--- OUTSIDE RECORDS SUMMARY | 2024-08-25 09:47 | XMS_ITS | Patient Health Record ---
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 Name Role Phone Charmaine Gary Primary Care Provider Greg Raymundo [phone] REASON FOR REFERRAL No Information MEDICATIONS Medication [...] W/U Status Risk SNOMED Code Notes Problem Encounter for screening for malignant neoplasm of colon (Z12.11) Active confirmed 166554130 Problem History of adenomatous polyp of colon (Z86.010) Active confirmed 623041456 Problem Acute gastric ulcer without hemorrhage or perforation (K25.3) Active confirmed 38189177 Problem Gastritis, unspecified, without bleeding (K29.70) Active confirmed 06162711 Problem History of hepatitis C (Z86.19) Active confirmed 28281446880868 Problem Liver fibrosis (K74.0) Active confirmed 92202542 PLAN OF TREATMENT Future Test Test Name Order Date UPPER GI ENDOSCOPY 02/14/2018 COLONOSCOPY 02/14/2018 Insurance Providers Payer Name Payer Address Payer Phone Subscriber Number Group Number Insured Name Patient Relationship to Insured Coverage Start Date Coverage End Date MEDICARE OF [place] [address] [place] [phone] [id number] KD SANCHEZ Self - patient is the insured MED[place] [address] [place] [id number] KD SANCHEZ Self - patient is the insured MEDICAL (GENERAL) HISTORY Medical History History ICD Code Stroke > 20 yrs ago Cirrhosis based on F4 fibrosis score Hypertension Hx of Hep C Genotype 1A -gaurav ated with Jeanne in early 2017---neg Hep C viral load in 04/2018 HIV Gallstones--asymptomatic--reviewed with patient on 02/14/18 Denies NH,DM,Lung disease,renal disease Colonoscopy 07/2018-1 small tubular adeno ma removed EGD in 07/2018-small gastric ulcer-bx positive for H.pylori, no varices--she was treated with 14 days of antibiotics and had a negative stool for H. pylori antigen test in January of 2019 Surgical History Surgery Date(Month/Year) Left wrist Tubal ligation
[2024-08-25 11:21] LABS: Hematocrit 38.5 % (37.0-47.0); Hemoglobin 12.4 g/dl (12.0-16.0); Mean Corpuscular HGB Conc 32.2 g/dl (31.0-35.0); Mean Corpuscular Hemoglobin 29.5 pg (27.0-33.0); Mean Corpuscular Volume 91.7 fL (80.0-98.0); Mean Platelet Volume 12.5 fL (9.4-12.3); Platelet Count 172 X10*3/uL (160-400); Red Cell Distribution Width 12.7 % (11.0-16.0)
[2024-08-25 11:42] LABS: WBC ABN SCTR FOR CBC 1
[2024-08-25 11:51] LABS: Band Neutrophils Percent 0 % (3-5); Basophils Percent Manual 1 % (0-2); Eosinophils Percent Manual 7 % (0-4); Lymphocytes Percent Manual 27 % (20-40); Monocytes Percent Manual 8 % (2-11); Neutrophils Percent Manual 57 % (45-73)
[2024-08-25 11:52] LABS: Platelet Estimate NORMAL (NORMAL); Platelet Morphology Comment NORMAL; RBC Morphology NORMAL
[2024-08-25 12:02] LABS: Basophils Abs Manual 0.1 X10*3/uL (0.0-0.2); Eosinophils Absolute Manual 0.5 X10*3/uL (0.0-0.4); Lymphocytes Absolute Manual 2.1 X10*3/uL (1.2-4.9); Monocytes Absolute Manual 0.6 X10*3/uL (0.1-1.2); Neutrophils Absolute Manual 4.4 X10*3/uL (2.0-8.3); White Blood Count 7.7 X10*3/uL (4.8-10.8)
[2024-08-25 12:41] LABS: Alanine Aminotransferase 25 U/L (0-31); Albumin Level 4.2 g/dL (3.5-5.0); Alkaline Phosphatase 75 U/L (39-117); Anion Gap 12 (12-20); Aspartate Amino Transferase 25 U/L (5-31); Bilirubin Total 0.3 mg/dL (0.0-1.0); Blood Urea Nitrogen 19 mg/dL (9-16); Calcium 9.2 mg/dL (8.4-10.2); Carbon Dioxide 28 mmol/L (22-29); Chloride 105 mmol/L (96-108); Estimated Glomerular Filt Rate 57; Glucose Random 106 mg/dL (60-115); Potassium 4.6 mmol/L (3.3-5.1); Sodium 140 mmol/L (135-145); Total Protein 7.9 g/dL (6.5-8.0)
[2024-08-28 17:33] LABS: HIV RNA PCR Qn Copies <20 DETECTED copies/mL (NOT DETECTED); HIV RNA PCR Qn Log Copies <1.30 DETECTED (NOT DETECTED)
[2024-08-29 00:53] LABS: Absolute CD3 Count 1870 cells/uL (840-3060); Absolute CD4 Count 852 cells/uL (490-1740); Absolute CD8 Count 1056 cells/uL (180-1170); Absolute Lymphocytes 2332 cells/uL (850-3900); CD4 CD8 Ratio 0.81 (0.86-5.00); Percent CD3 Cells 80 % (57-85); Percent CD4 Cells 37 % (30-61); Percent CD8 Cells 45 % (12-42)
== END 2024-08-25 09:11 | disposition home or self-care (01) ==
LOC: HO.HHCL 09:10
PROVIDERS: Visit Provider Internal Medicine
DX: Z21 Asymptomatic human immunodeficiency virus [HIV] infection status (principal)
CPT/HCPCS: 36415; 80053; 85007; 85027; 86359; 86360; 87536

== ENCOUNTER 2024-09-12 13:20 | Outpatient (AMB) | payer OTHER, SELFPAY ==
--- NOTE | 2024-09-12 13:32 | MHC.OFFVIS ---
Vital Signs 09/12/24 13:33 Height 5 ft 4 in Weight 151 lb 10.848 oz BMI 26.0 BP 142/72 H Blood Pressure Location Rt brachial Position Sitting Pulse 80 Pulse Source Pulse Oximeter Pulse Oximetry (%) 97 Oxygen Delivery Method Room Air Intake Visit Reasons: ~ 1 YR FUV. Intake Note: ESTABLISHED PATIENT for cirrhosis mgmt. Labs + Imaging. Chief Complaint; Pt denies any sx or concerns at this time. Network Desktop Support Specialist Required: Yes Network Desktop Support Specialist Services: Network Desktop Support Specialist Present Network Desktop Support Specialist Name: Sisi Corrales Information Interpreted: clinical only Accompanied by: Family/Other Allergies Penicillins Allergy (Verified 09/12/24 13:32) Hives HPI HPI ~ 1 YR FUV.: Details: LAST VISIT History of hepatitis C HIV (human immunodeficiency virus infection) Liver cirrhosis Colonoscopy refused Plan History of HIV and hep C. Patient has been treated by her PCP. Treatment for hep C back in 2018. Will do viral load. Patient denies any abdominal pain or discomfort. Denies any abdominal distension, jaundice. Will check for autoimmune disorders, alpha-fetoprotein was negative. Will check liver with elastography end-stage. Patient will return to the office in 3 months, sooner on as needed basis. Patient is agreeable to this plan and verbalizes understanding of instructions. She was given the opportunity to ask questions and all questions answered. ? Thank you for allowing me to participate in her care Orders Orders Hepatitis C Viral Load 08/07/23 Z86.19 US abdomen comp w elastography 08/07/23 R79.89 C Reactive Protein 08/07/23 K58.9 Smooth Muscle Antibody 08/07/23 R79.89 Mitochondrial Antibody 08/07/23 R79.89 Ferritin 08/07/23 R74.8 Liver Fibrosis Pnl 08/07/23 R74.8 Prothrombin Time INR 08/07/23 R74.8 TODAY'S VISIT Patient was seen by me last year was supposed to follow-up in 3 months. Labs reviewed with patient in the past over the phone and reviewed again today. Liver fibrosis panel showed improved from F2 to F1. Negative viral load. Nodular cirrhotic liver. Patient had normal liver enzymes last draw. Patient reports to be feeling well. Denies any abdominal pain or discomfort. Denies any melena, hematochezia, unintentional weight loss or ribbon like stools. Continues to decline colonoscopy. Today patient is accompanied by her daughter who confirms that patient has been doing well since last visit patient has been diagnosed with HIV as well and has seen Dr. Perez at [facility]. Meds reviewed with patient and her daughter, she on 4 different medication/treatment for HIV. 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 Review of Systems Const Denies weight gain and Denies weight loss ENT Reports no additional complaints, Denies dysphagia and Denies odynophagia Card Reports no additional complaints Resp Reports no additional complaints GI Denies abdominal pain, Denies belching, Denies melena, Denies bloating, Denies change in bowel habits, Denies dysphagia, Denies excessive flatus, Denies dyspepsia, Denies heartburn, Denies diarrhea, Denies loose stools, Denies nausea, Denies odynophagia and Denies vomiting Musc Reports no additional complaints Neuro Reports no additional complaints Psych Reports no additional complaints Endo Reports no additional complaints Physical Exam Vital Signs: Last Vital Signs Pulse 80 09/12/24 13:33 BP 142/72 H 09/12/24 13:33 Pulse Ox 97 09/12/24 13:33 Oxygen Delivery Method Room Air 09/12/24 13:33 BMI result Body Mass Index 26.0 Const General: healthy appearing, no acute distress and well developed Nutritional Appearance: well nourished Orientation/consciousness: patient oriented x3 Resp Effort & Inspection: normal respiratory effort, able to speak in complete sentences, no tracheal deviation and symmetric chest movement Auscultation: clear to auscultation bilaterally Cardio Rate: regular rate GI Inspection: Yes normal to inspection and No distended Palpation (GI): Soft to palpation, not firm, nontender and No hepatosplenomegaly present Auscultation: normal bowel sounds General: Yes no CVA tenderness Back/Spine/Pelvis Back: no CVA tenderness Skin General skin exam: elasticity normal, turgor normal and dry skin Neuro General: patient oriented x3 Psych Appearance: grossly normal Mental Status: mental status grossly normal Assessment & Plan Assessment & Plan (1) History of hepatitis C: Code(s): Z86.19 - Personal history of other infectious and parasitic diseases Category: Medical (2) HIV (human immunodeficiency virus infection): Code(s): B20 - Human immunodeficiency virus [HIV] disease Category: Medical Qualifiers: HIV symptom status: unspecified Qualified Code(s): B20 - Human immunodeficiency virus [HIV] disease (3) Liver cirrhosis: Code(s): K74.60 - Unspecified cirrhosis of liver Category: Medical Qualifiers: Hepatic cirrhosis type: unspecified hepatic cirrhosis Ascites presence: without ascites Qualified Code(s): K74.60 - Unspecified cirrhosis of liver (4) Colonoscopy refused: Code(s): Z53.20 - Procedure and treatment not carried out because of patient's decision for unspecified reasons Plan We will rechecked liver fibrosis panel, ferritin, alpha-fetoprotein, ferritin. Patient will be sent for ultrasound with liver elastography. Follow-up in 6 months, sooner on as needed basis. Patient is agreeable to this plan and verbalizes understanding of instructions. She was given the opportunity to ask questions and all questions answered. Thank you for allowing me to participate in her care Orders: Orders Alpha Fetoprotein Today R79.89 - Other specified abnormal findings of blood chemistry US abdomen rios w elastography Today K76.0 - Fatty (change of) liver, not elsewhere classified Liver Fibrosis Pnl Today K76.0 - Fatty (change of) liver, not elsewhere classified Ferritin Today R74.8 - Abnormal levels of other serum enzymes IRON PROFILE Today D64.9 - Anemia, unspecified Vitamin D 25-OH (D2 and D3) Today E55.9 - Vitamin D deficiency, unspecified Vitamin B12 and Folate Today R19.7 - Diarrhea, unspecified Coding Level of Care Code Est Pt Level 4 (65009) Complex EM visit Add On G2211 Diagnoses History of hepatitis C Z86.19 HIV infection, unspecified symptom status B20 HIV symptom status: unspecified Cirrhosis of liver without ascites, unspecified hepatic cirrhosis type K74.60 Hepatic cirrhosis type: unspecified hepatic cirrhosis Ascites presence: without ascites Colonoscopy refused Z53.20 Time Spent (min) 35 Comment 20 minutes spent with patient and additional 15 minutes spent reviewing her records
[2024-09-12 13:33] VITALS: BP 142/72; PULSE 80; O2SAT 97; BMI 26.0
--- OUTSIDE RECORDS SUMMARY | 2024-09-12 14:55 | XMS_ITS | Patient Health Record ---
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 Name Role Phone Charmaine Gary Primary Care Provider Greg Raymundo [phone] Reason For Referral No Information Medications Medication SIG (Take, Route, Frequency, Duration) Notes Start Date End Date Status Lisinopril-hydroCHLOROthia zide Active Naproxen Active Melatonin Active Prezcobix Active Descovy Active Tivicay Active Immunizations Vaccine Route Administration Date Status Comme nts Flu vaccine no Preserv 3 and > Unknown 05/08/2018 Admin istered Social History Tobacco Use: Social History Observation Description Date Details (start date - stop date) Current Smoker NA - NA Tobacco Use/Smoking Question Answer Notes Patient is [...] ast year? No Points 0 Interpretation Negative Section Notes: Smoker, recovering alcoholic--absinent since 09/2017 Denies substance abuse HIV and Hep C from a sexual partner Smoker, recovering alcoholic--absinent since 09/2017 Denies substance abuse HIV and Hep C from a sexual partner Problems Problem Type SNOMED Code ICD Code Onset Dates Problem Status W/U Status Risk Notes Problem 868611128 Encounter for screening for malignant neoplasm of colon (Z12.11) Active confirmed Problem 109784214 History of adenomatous polyp of colon (Z86.010) Active confirmed Problem 86322070 Acute gastric ulcer without hemorrhage or perforation (K25.3) Active confirmed Problem 45812791 Gastritis, unspecified, without bleeding (K29.70) Active confirmed Problem 05341547241000 History of hepatitis C (Z86.19) Active confirmed Problem 52273799 Liver fibrosis (K74.0) Active confirmed Plan Of Treatment Future Test Test Name Order Date UPPER GI ENDOSCOPY 02/14/2018 COLONOSCOPY 02/14/2018 Insurance Providers Payer Name Payer Address Payer Phone Subscriber Number Group Number Insured Name Patient Relationship to Insured Coverage Start Date Coverage End Date MEDICARE OF [place] [address] [place] [id number] [phone] [id number] KD SANCHEZ Self - patient is the insured MEDICAID OF [employer] [address] [place] [phone] [id number] KD SANCHEZ Self - patient is the insured Medical (General) History Medical History History ICD Code Stroke > [...]
== END 2024-09-12 14:13 | disposition home or self-care (01) ==
LOC: HO.HGI 13:21
PROVIDERS: PCP Internal Medicine; Visit Provider Nurse Practitioner Family
DX: Z86.19 Personal history of other infectious and parasitic diseases (principal); B20 Human immunodeficiency virus [HIV] disease; K74.60 Unspecified cirrhosis of liver; Z53.20 Procedure and treatment not carried out because of patient's decision for unspecified reasons
CPT/HCPCS: 99214; G2211

== ENCOUNTER → 2024-09-12 13:20 | Outpatient (BNVA) | payer OTHER, SELFPAY | PROVIDERS: PCP Internal Medicine; Visit Provider Nurse Practitioner Family | DX: B20 Human immunodeficiency virus [HIV] disease (principal); K74.60 Unspecified cirrhosis of liver; R79.89 Other specified abnormal findings of blood chemistry; K76.0 Fatty (change of) liver, not elsewhere classified; R74.8 Abnormal levels of other serum enzymes; D64.9 Anemia, unspecified; E55.9 Vitamin D deficiency, unspecified; R19.7 Diarrhea, unspecified; Z86.19 Personal history of other infectious and parasitic diseases | CPT/HCPCS: 99212 ==

== ENCOUNTER 2024-09-15 14:27 | Outpatient (REF) | payer MEDICAID, SELFPAY ==
[2024-09-15 15:17] LABS: Iron 73 mcg/dL (30-160); Percent Iron Saturation 24 % (15-50); Total Iron Binding Capacity 308 mcg/dL (228-428); Unsaturated Iron Binding 235 ug/dL
[2024-09-15 15:32] LABS: Ferritin 25 ng/mL (10-250)
[2024-09-15 15:45] LABS: Folate 12.3 ng/mL (> or = 4.0); Vitamin B12 477 pg/mL (200-900)
[2024-09-19 22:19] LABS: Vitamin D 25-OH, D2 <4 ng/mL; Vitamin D 25-OH, D3 31 ng/mL; Vitamin D 25-OH, Total 31 ng/mL (30-100)
[2024-09-20 19:53] LABS: FIB-ALT 24 U/L (6-29); FIB-Alpha-2-Macroglobulin 407 mg/dL (106-279); FIB-Apolipoprotein A1 158 mg/dL (101-198); FIB-GGT 33 U/L (3-65); FIB-Haptoglobin 166 mg/dL (43-212); FIB-Total Bilirubin 0.3 mg/dL (0.2-1.2); Liver Fibrosis Score 0.45; Liver Fibrosis Stage F1-F2; Nec Inflam Act Grade A0; Nec Inflam Act Score 0.13
== END 2024-09-15 14:28 | disposition home or self-care (01) ==
LOC: HO.LAB 14:27
PROVIDERS: PCP Internal Medicine; Visit Provider Nurse Practitioner Family
DX: R79.89 Other specified abnormal findings of blood chemistry (principal); R74.8 Abnormal levels of other serum enzymes; R19.7 Diarrhea, unspecified; K76.0 Fatty (change of) liver, not elsewhere classified; D64.9 Anemia, unspecified; E55.9 Vitamin D deficiency, unspecified
CPT/HCPCS: 36415; 81596; 82105; 82306; 82607; 82728; 82746; 83540

== ENCOUNTER 2024-10-28 08:21 | Outpatient (REF) | payer OTHER, SELFPAY ==
--- NOTE | ~2024-10-28 | US_ITS ---
EXAMINATION: US ABDOMEN LIMITED WITH LIVER ELASTOGRAPHY HISTORY: K76.0 - Fatty (change of) liver, not elsewhere classified TECHNIQUE: Real-time grayscale ultrasound imaging of the right upper quadrant was performed and images were reviewed. COMPARISON: Comparison is made with the prior examination dated 09/11/2023. FINDINGS: Liver: The right lobe of the liver measures 14.1 cm in size. The left lobe of the liver measures 11.5 cm in size. The liver demonstrates normal homogeneous echotexture. No focal mass or intrahepatic biliary ductal dilatation is identified. There is normal hepatopedal flow in the portal vein. Ultrasound elastography of the liver was performed with 10 separate measurements of the liver parenchyma with the patient in the supine position. Measurements were obtained approximately 2 cm below Jean's capsule and perpendicular to the capsule. Images are of satisfactory quality. The median shear wave velocity is 1.66 m/s (previously 1.80 m/s). The interquartile range/median (IQR/median) is 0.16. Gallbladder and biliary tree: Multiple calculi are noted in the gallbladder lumen. There is no wall thickening or pericholecystic fluid. There is no sonographic Thompson sign. The common bile duct is normal in caliber measuring 3 mm. Right Kidney: The right kidney measures 10.0 cm in length and demonstrates a 4 mm cyst in the interpolar region. The right kidney is otherwise unremarkable, without evidence of solid masses, hydronephrosis, or calculi. Pancreas: The pancreatic head, neck, and body are unremarkable. The pancreatic tail is obscured by bowel gas. Abdominal aorta and inferior vena cava: The visualized portions of the abdominal aorta and inferior vena cava are normal in caliber. There is no free fluid in the right upper quadrant. US/US abdomen rios w elastography IMPRESSION: Cholelithiasis. No liver mass is identified. The median shear wave velocity in the liver is 1.66 m/s, corresponding to a median liver stiffness of 8.41 kPa. The IQR/median value is 0.16. This is indicative of a poor quality data set, and the estimated liver stiffness may be unreliable. Findings are indicative of a low elastography value which rules out advanced chronic liver disease in asymptomatic patients. REFERENCE: Society of Radiologists in Ultrasound Liver Stiffness Thresholds (2020): LIVER STIFFNESS THRESHOLDS: *Shear wave velocity less than 1.3 m/s (Liver Stiffness equal or less than 5 kPa): High probability of being normal. *Shear wave velocity less than 1.7 m/s (Liver Stiffness less than 9 kPa): In the absence of other known clinical signs, rules out compensated advanced chronic liver disease. *Shear wave velocity between 1.7-2.1 m/s (Liver Stiffness 9-13 kPa): Suggestive of compensated advanced chronic liver disease but need further test for confirmation. *Shear wave velocity between 2.1-2.4 m/s (Liver Stiffness 13-17 kPa): Rules in compensated advanced chronic liver disease. *Shear wave velocity greater than 2.4 m/s (Liver Stiffness over 17 kPa): Suggestive of clinically significant portal hypertension. QUALITY OF DATA SET: *IQR/Median value equal or less that 0.15 implies a quality data set. *IQR/Median value over 0.15 implies a poor quality data set. SIGNIFICANT CHANGE FROM PRIOR EXAM: Significant change if liver stiffness measurement is 10% or greater from prior exam. OTHER CONSIDERATIONS: The stage of liver fibrosis may be overestimated in the setting of acute hepatitis, liver inflammation, elevated liver function tests, hepatic vascular congestion, obstructive cholestasis, non-fasting state, and infiltrative diseases such as amyloidosis and lymphoma. In some patients with NAFLD, the liver stiffness thresholds for compensated advanced chronic liver disease may be lower. In causes other than viral hepatitis and NAFLD, liver stiffness thresholds are not well established. Electronically signed by: Greg Mena MD 10/29/2024 12:59 PM EDT
== END 2024-10-28 08:22 | disposition home or self-care (01) ==
LOC: HO.US 08:21
PROVIDERS: PCP Internal Medicine; Visit Provider Nurse Practitioner Family
DX: K76.0 Fatty (change of) liver, not elsewhere classified (principal)
CPT/HCPCS: 76705; 76981

== ENCOUNTER → 2024-10-28 08:24 | Outpatient (BNV) | payer OTHER, SELFPAY | PROVIDERS: PCP Internal Medicine; Visit Provider Radiology Diagnostic Radiology | DX: K76.0 Fatty (change of) liver, not elsewhere classified (principal) | CPT/HCPCS: 76705; 76981 ==

== ENCOUNTER 2025-01-01 09:46 | Outpatient (AMB) | payer OTHER, SELFPAY ==
--- NOTE | 2025-01-01 10:08 | MHC.OFFVIS ---
Intake Visit Reasons: 6m follow up Intake Note: Patient presents today for follow up visit on: microscopic hematuria Urology Medications: none Blood Thinner: none Ice Maker Required: Yes Ice Maker Services: Ice Maker Offered & Declined Accompanied by: Unknown Allergies Penicillins Allergy (Verified 01/01/25 10:26) Hives Medication List - Last Reconciled 01/01/25 by Zara Murray, COLON THERAPIST- albuterol sulfate 90 mcg/actuation 0 mcg inhalation alendronate 70 mg PO QWEEK amlodipine 5 mg PO DAILY atorvastatin 20 mg PO DAILY woktezivx-hxvgesox-snlzyyl ala 50-200-25 mg (Biktarvy) 1 tab PO DAILY calcium carbonate-vitamin D3 500 mg-5 mcg (200 unit) (Oyster Shell Calcium-Vitamin D3) 1 tab PO DAILY darunavir-cobicistat 800-150 mg-mg (Prezcobix) 1 tab PO DAILY dolutegravir (Tivicay) 50 mg PO DAILY emtricitabine-tenofovir alafen 200-25 mg (Descovy) 1 tab PO DAILY ferrous sulfate (FeroSul) 325 mg PO DAILY gabapentin 100 mg PO TID hydrochlorothiazide 50 mg PO DAILY lisinopril 40 mg PO DAILY melatonin 5 mg PO BEDTIME HPI Comments Details: Ysabel is a very pleasant [place]-speaking 69-year-old female patient of Dr. Proctor who was accompanied by her daughter. She has a past medical history of liver cirrhosis, HIV, hep C, osteoporosis, hypercholesteremia, and hypertension. She presents to the office today for follow-up of her microscopic hematuria in the setting of nicotine dependence. Previous workup has included a CT urogram as well as in office cystoscopy. CT 02/22 notes that the kidneys are normal in size, shape, and attenuation. No hydronephrosis hydroureter or calculi seen. There are benign simple bilateral renal cysts, too small to characterize with CT. These require no imaging follow-up per radiology report. No perinephric stranding. The bladder is unremarkable. Discussed findings of 8.7 cm complex mass seen on left ovary and recommendation for gynecology evaluation per radiology report. She reports having followed up with her PCP and having had Pap smear that was within normal limits in his due to have follow-up with PCP later this month and will discuss further referral if necessary. In office cystoscopy 05/25 NAD. When asked she does continue to report nicotine dependence. She reports smoking approximately 4-5 cigarettes per day. We did discussed smoking cessation however she is not interested at this time. In office urinalysis results reviewed with the patient today. 2+ microscopic hematuria. We will continue with surveillance monitoring and she is in agreement. She otherwise denies any bothersome urinary issues. Urine cytology: 11/22 Negative for high-grade urothelial carcinoma. She denies urinary urgency, incontinence, nocturia, hematuria, dysuria, foul smelling urine, changes to urinary stream, flank pain, fever, and or chills. She is happy with her current voiding parameters. She does report noting urinary frequency however notes urinary frequency after taking her hydrochlorothiazide. She otherwise offers no other issues or concerns at this time. 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 Review of Systems Const Reports no additional complaints Eyes Reports no additional complaints ENT Reports no additional complaints Card Reports as per HPI Resp Reports no additional complaints GI Reports as per HPI Reports as per HPI Musc Reports no additional complaints Neuro Reports no additional complaints Psych Reports no additional complaints Endo Reports no additional complaints Jean Pierre/Lymph Reports as per HPI Aller/Immun Reports as per HPI Physical Exam Const General: cooperative, healthy appearing, comfortable, no acute distress, well developed, alert and awake Orientation/consciousness: patient oriented x3 Limitations: no limitations HEENT Head: Yes normal to inspection, Yes normocephalic and Yes atraumatic Ears: hearing grossly normal bilaterally Eyes General: appearance normal, both eyes and all related structures Neck Neck: Yes normal visual inspection and Yes trachea midline Chest Chest palpation & inspection: normal inspection of the chest Resp Effort & Inspection: normal respiratory effort and able to speak in complete sentences Cardio Rate: regular rate GI Inspection: Yes normal to inspection General: Yes no CVA tenderness Back/Spine/Pelvis Back: no CVA tenderness Skin General skin exam: no rashes or lesions noted Neuro General: patient oriented x3 Extrem General: Yes normal to inspection Psych Appearance: grossly normal and well kempt Mental Status: mental status grossly normal Speech and movement: Normal speech and movement present and Clear speech present Affect: normal affect Attitude: cooperative Thought process: Normal thought process present Thought content: Normal thought content present Insight: Fair insight present (Psych) Judgement: Fair judgement present (Psych) Results AMB Urinalysis, Automated UA Leukoctes 70 Kelly/uL Last Edit by [facility] on 01/01/25 10:23 UA Nitrite Last Edit by [facility], [facility] on 01/01/25 10:23 UA Urobilinogen 0.2 mg/dL Last Edit by [facility], [facility] on 01/01/25 10:23 UA Protein 0 mg/dL Last Edit by [facility], [facility] on 01/01/25 10:23 UA pH 6.5 Last Edit by [facility], [facility] on 01/01/25 10:23 UA Blood 80 Rinku/uL Last Edit by [facility], [facility] on 01/01/25 10:23 UA Specific Strawn 1.010 Last Edit by [facility], [facility] on 01/01/25 10:23 UA Ketone Last Edit by [facility], [facility] on 01/01/25 10:23 UA Bilirubin 0 mg/dL Last Edit by [facility], [facility] on 01/01/25 10:23 UA Glucose 0 mg/dL Last Edit by [facility], [facility] on 01/01/25 10:23 Assessment & Plan Assessment & Plan (1) Nicotine dependence: Code(s): F17.200 - Nicotine dependence, unspecified, uncomplicated Category: Medical (2) Microscopic hematuria: Code(s): R31.29 - Other microscopic hematuria Category: Medical Plan In office urinalysis results with the patient today; as noted above; will send for urine cytology. She currently denies any bothersome urinary issues or concerns. She reports be happy with current voiding parameters. Will continue with surveillance monitoring. We did discussed the importance of smoking cessation in relation to overall health and well-being. All questions were answered. Continue follow-up with PCP regarding referral to maintenance department technician for further assessment evaluation. Follow-up in 6 months; or sooner with any issues, concerns, and or questions. Orders: Orders Urine Cytology Today R31.29 - Other microscopic hematuria AMB Urinalysis Automated Today Z13.9 - Encounter for screening, unspecified Patient Instructions: The patient had an opportunity to ask questions regarding the treatment plan. All questions were answered. Physical exam, labs, and imaging were discussed and reviewed in detail. As well as risks, benefits, and discussion of treatment choices. No major barriers to understanding were identified. The patient expressed understanding and agreement with the above treatment plan. The patient was made aware they should contact our office by phone for worsening of their current condition, the appearance of new symptoms, or with any questions or concerns. Compliance is encouraged with any medications and follow up testing that is ordered. It is a privilege to be allowed the opportunity to participate in? your urological care.? Again, if you have any questions or concerns If you have any questions or concerns please do not hesitate to contact me. The office is [phone]. This note is constructed using voice recognition software. While every effort has been made to ensure accuracy storeperson errors may have been included. Yours sincerely, RAMYA Villa Coding Level of Care Code Est Pt Level 3 (26330) Complex EM visit Add On G2211 Diagnoses Nicotine dependence F17.200 Microscopic hematuria R31.29
--- OUTSIDE RECORDS SUMMARY | 2025-01-01 10:17 | XMS_ITS | Patient Health Record ---
Demographics Address [address] [place] [address] Mobile Preferred Language Unknown Marital Status unmarried Uatsdin Affiliation Unknown Race Ethnic Group or Author Organization [facility] Address [address] [place] [address] Care Team Providers Care Prison Warden Name Role Phone Charmaine Gary Primary Care Provider Greg Raymundo [phone] Reason For Referral No Information Medications Medication [...] Problem Status W/U Status Risk Notes Problem [id number] Encounter for screening for malignant neoplasm of colon (Z12.11) Active confirmed Problem 528963691 History of adenomatous polyp of colon (Z86.010) Active confirmed Problem 18355243 Acute gastric ulcer without hemorrhage or perforation (K25.3) Active confirmed Problem 13033234 Gastritis, unspecified, without bleeding (K29.70) Active confirmed Problem 03090748465540 History of hepatitis C (Z86.19) Active confirmed Problem 73135150 Liver fibrosis (K74.0) Active confirmed Plan Of Treatment Future Test Test Name Order Date UPPER GI ENDOSCOPY 02/14/2018 COLONOSCOPY 02/14/2018 Insurance Providers Payer Name Payer Address Payer Phone Subscriber Number Group Number Insured Name Patient Relationship to Insured Coverage Start Date Coverage End Date MED[place]ARE OF [place] [address] [place] [address] [id number] KD SANCHEZ Self - patient is the insured [place] [address] [place] [phone] [id number] KD SANCHEZ Self - patient is the insured Medical (General) History Medical History History ICD Code Stroke > 20 yrs ago Cirrhosis based on F4 fibrosis score Hypertension Hx of Hep C Genotype 1A -gaurav ated with Jeanne in early 2017---neg Hep C viral load in 04/2018 HIV Gallstones--asymptomatic--reviewed with patient on 02/14/18 Denies [place],DM,Lung disease,renal disease Colonoscopy 07/2018-1 small tubular adeno jessica removed EGD in 07/2018-small gastric ulcer-bx positive for H.pylori, no varices--she was treated with 14 days of antibiotics and had a negative stool for H. pylori antigen test in January of 2019 Surgical History Surgery Date(Month/Year) Left wrist Tubal ligation
== END 2025-01-01 10:52 | disposition home or self-care (01) ==
LOC: HO.HUSH 09:47
PROVIDERS: PCP Internal Medicine; Visit Provider Nurse Practitioner Family
DX: F17.200 Nicotine dependence, unspecified, uncomplicated (principal); R31.29 Other microscopic hematuria; Z13.9 Encounter for screening, unspecified
CPT/HCPCS: 99213; G2211

== ENCOUNTER 2025-01-01 09:46 | Outpatient (REF) | payer OTHER, SELFPAY | END 2025-01-01 09:47 | disposition home or self-care (01) | LOC: HO.LNP 09:46 | PROVIDERS: PCP Internal Medicine; Visit Provider Nurse Practitioner Family | DX: R31.29 Other microscopic hematuria (principal); F17.210 Nicotine dependence, cigarettes, uncomplicated; Z13.9 Encounter for screening, unspecified | CPT/HCPCS: 81003; 88112; 99212 ==

== ENCOUNTER 2025-01-26 09:24 | Outpatient (REF) | payer OTHER, SELFPAY ==
--- NOTE | ~2025-01-26 | MM_ITS ---
EXAMINATIONS: 1. MM DIAGNOSTIC DIGITAL BREAST TOMOSYNTHESIS, BILATERAL 2. Targeted ultrasound of the right breast CLINICAL INFORMATION: Right breast pain, not focal COMPARISON: Comparison made to multiple prior, most recent October 23, 2023, and most remote June 14, 2020. TECHNIQUE: Digital breast tomosynthesis is performed in both the craniocaudal and mediolateral oblique views along with computer-aided detection (CAD). Synthesized 2D images are generated from the tomosynthesis. FINDINGS: BREAST COMPOSITION: There are scattered areas of fibroglandular density (ACR BI-RADS breast composition Category b). RIGHT BREAST: No significant masses, suspicious calcifications or other abnormalities are seen. Targeted ultrasound of the right breast was performed at the location of the pain as indicated by the patient. The survey was performed throughout the 2:00-6:00 axis and did not reveal suspicious sonographic findings. Only normal breast tissue seen. LEFT BREAST: No significant masses, suspicious calcifications or other abnormalities are seen. MM/MM tomosynthesis diagnostic BI IMPRESSION: RIGHT BREAST: Negative, no evidence of malignancy. In particular, no suspicious findings to account for patient's concern of local focal pain. Clinical follow-up is recommended, otherwise, normal interval follow-up mammogram is recommended in 12 months. LEFT BREAST: Negative, no mammographic evidence of malignancy. Normal interval follow-up is recommended in 12 months. ASSESSMENT: BI-RADS 1 - Negative RECOMMENDATION: 1. Patient should be managed based on the clinical impression. 2. Otherwise, routine annual screening mammography. Results were provided to the patient at time of visit by the technologist. This patient's information was entered into a reminder system with a target due date for their next mammogram. Electronically signed by: Harshad Miner MD 01/26/2025 10:00 AM EDT
--- OUTSIDE RECORDS SUMMARY | 2025-01-26 10:13 | XMS_ITS | Patient Health Record ---
Demographics Address [address] [place] [address] Mobile Preferred Language Unknown Marital Status unmarried Judaism Affiliation Unknown Race Ethnic Group or Author Organization [facility] Address [address] [place] [address] Care Team Providers Care Frequency Checker Name Role Phone Charmaine Gary Primary Care Provider Greg Raymundo [phone] Reason For Referral No Information Medications Medication [...] Problem Status W/U Status Risk Notes Problem [id number] Encounter for screening for malignant neoplasm of colon (Z12.11) Active confirmed Problem 459571185 History of adenomatous polyp of colon (Z86.010) Active confirmed Problem 09406826 Acute gastric ulcer without hemorrhage or perforation (K25.3) Active confirmed Problem 54890562 Gastritis, unspecified, without bleeding (K29.70) Active confirmed Problem 77488867597961 History of hepatitis C (Z86.19) Active confirmed Problem 64132730 Liver fibrosis (K74.0) Active confirmed Plan Of Treatment Future Test Test Name Order Date UPPER GI ENDOSCOPY 02/14/2018 COLONOSCOPY 02/14/2018 Insurance Providers Payer Name Payer Address Payer Phone Subscriber Number Group Number Insured Name Patient Relationship to Insured Coverage Start Date Coverage End Date MED[place]ARE OF [place] [address] [place] [address] [id number] KD SANCHEZ Self - patient is the insured MEDICA[place] [address] [place] [address] [id number] KD SANCHEZ Self - patient is the insured Medical (General) History Medical History History ICD Code 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 pylori antigen test in January of 2019 Surgical History Surgery Date(Month/Year) Left wrist Tubal ligation
== END 2025-01-26 09:25 | disposition home or self-care (01) ==
LOC: HO.MAMMO 09:24
PROVIDERS: PCP Internal Medicine
DX: N64.4 Mastodynia (principal)
CPT/HCPCS: 76642; 77062; 77066

== ENCOUNTER → 2025-01-26 10:00 | Outpatient (BNV) | payer OTHER, SELFPAY | PROVIDERS: PCP Internal Medicine; Visit Provider Radiology Body Imaging | DX: N64.4 Mastodynia (principal) | CPT/HCPCS: 76642; 77066; G0279 ==

== ENCOUNTER 2025-03-16 08:48 | Outpatient (REF) | payer MEDICAID, SELFPAY ==
--- OUTSIDE RECORDS SUMMARY | 2025-03-16 10:04 | XMS_ITS | Patient Health Record ---
Demographics Address [address] [place] [address] Mobile Preferred Language Unknown Marital Status unmarried Latter Day Affiliation Unknown Race Ethnic Group or Author Organization [facility] Address [address] [place] [address] Care Team Providers Care Surgical Services Asst Name Role Phone Charmaine Gary Primary Care Provider Greg Raymundo [phone] Reason For Referral No Information Medications Medication [...] Problem Status W/U Status Risk Notes Problem 401126287 Encounter for screening for malignant neoplasm of colon (Z12.11) Active confirmed Problem 865452672 History of adenomatous polyp of colon (Z86.010) Active confirmed Problem 66754362 Acute gastric ulcer without hemorrhage or perforation (K25.3) Active confirmed Problem 94345496 Gastritis, unspecified, without bleeding (K29.70) Active confirmed Problem 33253631820827 History of hepatitis C (Z86.19) Active confirmed Problem 12977311 Liver fibrosis (K74.0) Active confirmed Plan Of Treatment Future Test Test Name Order Date UPPER GI ENDOSCOPY 02/14/2018 COLONOSCOPY 02/14/2018 Insurance Providers Payer Name Payer Address Payer Phone Subscriber Number Group Number Insured Name Patient Relationship to Insured Coverage Start Date Coverage End Date MEDICARE OF [place] [address] [place] [address] [id number] KD SANCHEZ Self - patient is the insured [place]ICAID [place] [employer] [address] [place] [phone] [id number] KD SANCHEZ Self - patient is the insured Medical (General) History Medical History History ICD Code 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 pylori antigen test in January of 2019 Surgical History Surgery Date(Month/Year) Left wrist Tubal ligation
[2025-03-16 11:12] LABS: MANUAL DIFF FLAG NO
[2025-03-16 11:19] LABS: Hematocrit 37.5 % (37.0-47.0); Hemoglobin 12.7 g/dl (12.0-16.0); Imm Gran Abs Auto 0.04 X10*3/uL (0.00-0.03); Imm Gran Pct Auto 0.5 % (0.0-0.4); Lymphocytes Absolute Auto 2.5 X10*3/uL (1.2-4.9); Mean Corpuscular HGB Conc 33.9 g/dl (31.0-35.0); Mean Corpuscular Hemoglobin 29.7 pg (27.0-33.0); Mean Corpuscular Volume 87.8 fL (80.0-98.0); NRBC Abs Auto 0.000 X10*3/uL (0.0-0.012); NRBC Pct Auto 0.0 /100WBC (0.0-0.2); Platelet Count 158 X10*3/uL (160-400); Red Blood Count 4.27 X10*6/uL (4.20-5.50); White Blood Count 8.3 X10*3/uL (4.8-10.8)
[2025-03-16 11:38] LABS: Hemoglobin A1C 122.6538 umol/L; Total Hemoglobin (HGBA1C) 3317.3160 umol/L
[2025-03-16 12:04] LABS: Alanine Aminotransferase 29 U/L (0-31); Albumin Level 4.4 g/dL (3.5-5.0); Alkaline Phosphatase 78 U/L (39-117); Anion Gap 13 (12-20); Aspartate Amino Transferase 20 U/L (5-31); Blood Urea Nitrogen 19 mg/dL (9-16); Calcium 8.9 mg/dL (8.4-10.2); Carbon Dioxide 30 mmol/L (22-29); Chloride 102 mmol/L (96-108); Estimated Glomerular Filt Rate 58; Potassium 4.1 mmol/L (3.3-5.1); Sodium 141 mmol/L (135-145); Total Protein 7.7 g/dL (6.5-8.0)
[2025-03-16 12:08] LABS: Syphilis Screen Reactive (Nonreactive)
[2025-03-17 22:59] LABS: HCV Log PCR <1.18 NOT DETECTED Log IU/mL (NOT DETECTED); HepC Viral Load <15 NOT DETECTED IU/mL (NOT DETECTED)
[2025-03-18 16:27] LABS: HIV RNA PCR Qn Copies 57 copies/mL (NOT DETECTED); HIV RNA PCR Qn Log Copies 1.76 (NOT DETECTED)
[2025-03-19 04:44] LABS: TS Negative Control Passed; TS Panel A 3; TS Panel B 1; TS Positive Control Passed; TSpotTB Negative (Negative)
[2025-03-20 14:51] LABS: T.Pallidum Particle Agg Test Inconclusive (Nonreactive)
[2025-03-23 14:38] LABS: Absolute CD3 Count 2382 cells/uL (840-3060); Absolute CD8 Count 1420 cells/uL (180-1170); Percent CD3 Cells 81 % (57-85); Percent CD8 Cells 48 % (12-42)
== END 2025-03-16 08:49 | disposition home or self-care (01) ==
LOC: HO.HHCL 08:48
PROVIDERS: Internal Medicine; PCP Student in an Organized Health Care Education/Training Program; Visit Provider Student in an Organized Health Care Education/Training Program
DX: Z11.59 Encounter for screening for other viral diseases (principal); Z11.3 Encounter for screening for infections with a predominantly sexual mode of transmission; Z11.1 Encounter for screening for respiratory tuberculosis; Z21 Asymptomatic human immunodeficiency virus [HIV] infection status
CPT/HCPCS: 36415; 80053; 83036; 85025; 86359; 86360; 86481; 86592; 86780; 87522; 87536

== ENCOUNTER 2025-04-06 09:51 | Outpatient (REF) | payer MEDICAID, SELFPAY ==
--- OUTSIDE RECORDS SUMMARY | 2025-04-06 11:17 | XMS_ITS | Patient Health Record ---
Demographics Address [address] [place] [address] Mobile Preferred Language Unknown Marital Status unmarried Anglican Affiliation Unknown Race Ethnic Group or Author Organization [facility] Address [address] [place] [address] Care Team Providers Care Education Manager Name Role Phone Charmaine Gary Primary Care Provider Greg Raymundo [phone] Reason For Referral No Information Medications Medication [...] Problem Status W/U Status Risk Notes Problem 956424811 Encounter for screening for malignant neoplasm of colon (Z12.11) Active confirmed Problem 516953988 History of adenomatous polyp of colon (Z86.010) Active confirmed Problem 73592735 Acute gastric ulcer without hemorrhage or perforation (K25.3) Active confirmed Problem 41175523 Gastritis, unspecified, without bleeding (K29.70) Active confirmed Problem 47809570860827 History of hepatitis C (Z86.19) Active confirmed Problem 53397156 Liver fibrosis (K74.0) Active confirmed Plan Of Treatment Future Test Test Name Order Date UPPER GI ENDOSCOPY 02/14/2018 COLONOSCOPY 02/14/2018 Insurance Providers Payer Name Payer Address Payer Phone Subscriber Number Group Number Insured Name Patient Relationship to Insured Coverage Start Date Coverage End Date MED[place]ARE OF [place] [address] [place] [address] [id number] KD SANCHEZ Self - patient is the insured MEDICAID OF [employer] [address] [place] [phone] [id number] KD SANCHEZ Self - patient is the insured Medical (General) History Medical History History ICD Code 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 pylori antigen test in January of 2019 Surgical History Surgery Date(Month/Year) Left wrist Tubal ligation
[2025-04-06 11:26] LABS: MANUAL DIFF FLAG NO
[2025-04-06 11:32] LABS: Hematocrit 33.7 % (37.0-47.0); Hemoglobin 11.8 g/dl (12.0-16.0); Imm Gran Abs Auto 0.05 X10*3/uL (0.00-0.03); Imm Gran Pct Auto 0.6 % (0.0-0.4); Lymphocytes Absolute Auto 2.4 X10*3/uL (1.2-4.9); Mean Corpuscular HGB Conc 35.0 g/dl (31.0-35.0); Mean Corpuscular Hemoglobin 30.0 pg (27.0-33.0); Mean Corpuscular Volume 85.8 fL (80.0-98.0); NRBC Abs Auto 0.000 X10*3/uL (0.0-0.012); NRBC Pct Auto 0.0 /100WBC (0.0-0.2); Platelet Count 164 X10*3/uL (160-400); Red Blood Count 3.93 X10*6/uL (4.20-5.50); White Blood Count 8.5 X10*3/uL (4.8-10.8)
== END 2025-04-06 09:52 | disposition home or self-care (01) ==
LOC: HO.HHCL 09:51
PROVIDERS: PCP Student in an Organized Health Care Education/Training Program; Visit Provider Student in an Organized Health Care Education/Training Program
DX: Z21 Asymptomatic human immunodeficiency virus [HIV] infection status (principal)
CPT/HCPCS: 36415; 85025